=== PATIENT | male | born 1940 | race Caucasian/White ===

== ENCOUNTER 2016-11-01 05:27 | Emergency (ER) | payer OTHER, MEDICARE ==
[~2016-11-01] VITALS: Ht 177.8 cm; Wt 75.9 kg
[~2016-11-01 05:27] MED LIST: ASPEC325 PO; IBUP-1050 PO; MULT-506 PO
[2016-11-01 05:30] VITALS: TEMP 36.3; Ht 177.8 cm; Wt 75.9 kg
[2016-11-01] MEDS ORDERED: SODIUM CHLORIDE 0.9% 500ML 500 ML IV STA (05:45)
[2016-11-01 06:08] LABS: BASO % 0.6 %; BASO ABS # 0.03 K/uL (0-0.2); COMPLETE YES; HEMATOCRIT 42.8 % (42-52); IG% 0.2 %; LYMPH % 30.6 %; LYMPH ABS # 1.57 K/uL (1.2-3.4); MEAN CELL VOLUME 88.2 fL (80-100); MEAN CORPUSCULAR HEMOGLOBIN 31.1 pg (25-34); MEAN CORPUSCULAR HGB CONC 35.3 g/dl (32-36); MEAN PLATELET VOLUME 8.6 fL (7.4-10.4); MONO % 10.3 %; NEUT % 52.3 %; PLATELET COUNT 199 K/uL (130-400); RED BLOOD COUNT 4.85 M/uL (4.7-6.1); WHITE BLOOD COUNT 5.13 K/uL (4.8-10.8)
[2016-11-01 06:26] LABS: BUN/CREATININE RATIO 15.7 (10-20); CALCIUM 8.7 mg/dl (8.5-10.1); CREATININE 0.95 mg/dl (0.60-1.40)
[2016-11-01] MEDS ORDERED: SOAP SUDS ENEMA PR ONE (06:30)
--- NOTE | 2016-11-01 06:39 | EMERGENCY ROOM VISIT NOTE ---
History First contact with patient: 05:34 Chief Complaint: CONSTIPATION Stated Complaint: BLOCKED BOWLS Nursing Triage Summary: Patient reports constipation x6 days. Patient has tried enemas, stool softners, and seen by PCP with no results. Patient states "It feels like I haven't eaten in weeks." History of Present Illness The patient is a 76 year old male who presents to the Emergency Department by private vehicle for evaluation of his constipation. The patient reports that he has not had a bowel movement in the past 6 days. He does report that since May he has had issues with her bowel movements and has been using MiraLAX as needed. He has used multiple [id number] medications. He was seen at his primary care provider's office yesterday and instructed on using a fleets enema. He reports that he use this without success. He denies any pain, but reports occasional fullness in his belly. He reports a history of appendectomy several years ago. He denies any other abdominal surgeries. He is treated for cholesterol issues as well as GERD. He denies any other acute medical conditions. He denies any bleeding from his rectum or blood in stools otherwise. The patient rates his current discomfort as 2/10. Patient denies any chest pain, palpitations, shortness of breath, nausea, vomiting, hematemesis , hematochezia, melena, hematuria, or dysuria. Review of Systems A complete 10-point Review of Systems was discussed with the patient, with pertinent positives and negatives listed in the History of Present Illness. All remaining Review of Systems questions can be considered negative unless otherwise specified. Social History Smoking Status: Never Smoker Smokeless Tobacco Use: No Marital Status: Housing Status: lives with family Occupation Status: retired Current/Historical Medications Scheduled Ranitidine Hcl (Acid Meat Team Lead), 1 TAB PO DAILY Allergies Coded Allergies: No Known Allergies (Verified , 11/01/16) Physical Exam Vital Signs Date Time Temp Pulse Resp B/P Pulse Ox O2 Delivery O2 Flow Rate FiO2 11/01/16 07:27 87 16 121/83 100 11/01/16 05:30 36.3 85 18 118/83 98 Room Air Pain Rating (0-10): 2 Physical Exam VITAL SIGNS - Vital signs and nursing notes were reviewed. GENERAL - 76-year-old male appearing her stated age who is in no acute distress. Communicates well with provider and answers questions appropriately. LUNGS - Chest wall symmetric without accessory muscle use, intercostals retractions, or central cyanosis. Normal vesicular breath sounds CTA B/L. No wheezes, rales, or rhonchi appreciated. CARDIAC - RRR with S1/S2. No murmur, rubs, or gallops appreciated. ABDOMEN - Abdominal contour flat and without pulsations or visible masses. BS normoactive all four quadrants. No tenderness to palpation appreciated throughout. No guarding. No Rebound Tenderness. Negative Rovsing's. Negative Montalvo's. No palpable masses, hepatosplenomegaly, or ascites noted. PSYCH - A&Ox3 and cooperates fully with examiner. Pt is very pleasant and interacts well with examiner. Medical Decision & Procedures ER Provider Diagnostic Interpretation: Obstruction series was obtained and reviewed by myself and my attending physician. The patient has moderate amount of stool throughout the colon with focus to the descending colon and rectum. Radiologist's impression unavailable at the time of dictation. Laboratory Results 11/01/16 05:50 Red Blood Count 4.85, Mean Corpuscular Volume 88.2, Mean Corpuscular Hemoglobin 31.1, Mean Corpuscular Hemoglobin Concent 35.3, Mean Platelet Volume 8.6, Neutrophils (%) (Auto) 52.3, Lymphocytes (%) (Auto) 30.6, Monocytes (%) (Auto) 10.3, Eosinophils (%) (Auto) 6.0, Basophils (%) (Auto) 0.6, Neutrophils # (Auto ) 2.68, Lymphocytes # (Auto) 1.57, Monocytes # (Auto) 0.53, Eosinophils # (Auto ) 0.31, Basophils # (Auto) 0.03 11/01/16 05:50 Test 11/01/16 05:50 White Blood Count 5.13 K/uL (4.8-10.8) Red Blood Count 4.85 M/uL (4.7-6.1) Hemoglobin 15.1 g/dL (14.0-18.0) Hematocrit 42.8 % (42-52) Mean Corpuscular Volume 88.2 fL (80-100) Mean Corpuscular Hemoglobin 31.1 pg (25-34) Mean Corpuscular Hemoglobin Concent 35.3 g/dl (32-36) Platelet Count 199 K/uL (130-400) Mean Platelet Volume 8.6 fL (7.4-10.4) Neutrophils (%) (Auto) 52.3 % Lymphocytes (%) (Auto) 30.6 % Monocytes (%) (Auto) 10.3 % Eosinophils (%) (Auto) 6.0 % Basophils (%) (Auto) 0.6 % Neutrophils # (Auto) 2.68 K/uL (1.4-6.5) Lymphocytes # (Auto) 1.57 K/uL (1.2-3.4) Monocytes # (Auto) 0.53 K/uL (0.11-0.59) Eosinophils # (Auto) 0.31 K/uL (0-0.5) Basophils # (Auto) 0.03 K/uL (0-0.2) RDW Standard Deviation 40.6 fL (36.4-46.3) RDW Coefficient of Variation 12.7 % (11.5-14.5) Immature Granulocyte % (Auto) 0.2 % Immature Granulocyte # (Auto) 0.01 K/uL (0.00-0.02) Anion Gap 9.0 mmol/L (3-11) Est Creatinine Clear Calc Drug Dose 70.4 ml/min Estimated GFR () 91.0 Estimated GFR (Non- 78.5 BUN/Creatinine Ratio 15.7 (10-20) Calcium Level 8.7 mg/dl (8.5-10.1) Total Bilirubin 0.8 mg/dl (0.2-1) Aspartate Amino Transf (AST/SGOT) 19 U/L (15-37) Alanine Aminotransferase (ALT/SGPT) 22 U/L (12-78) Alkaline Phosphatase 63 U/L (45-117) Total Protein 7.1 gm/dl (6.4-8.2) Albumin 3.5 gm/dl (3.4-5.0) Globulin 3.6 gm/dl (2.5-4.0) Albumin/Globulin Ratio 1.0 (0.9-2) Medications Administered Medications (Trade) Dose Ordered Sig/Luzmaria Route Start Time Stop Time Status Last Admin Dose Admin Sodium Chloride (Nss 500ml) 500 ml @ 999 mls/hr Q31M STAT IV 11/01/16 05:45 11/01/16 06:15 DC 11/01/16 05:45 999 MLS/HR Miscellaneous (Soap Suds Enema) 1 ea NOW ONCE PA 11/01/16 06:30 11/01/16 06:31 DC 11/01/16 06:30 1 EA ED Course Patient was seen and evaluated by myself. Labs were drawn, saline lock in place. The patient was hydrated with a 500 mL normal saline bolus. Obstruction series was obtained. Laboratory results demonstrate no acute leukocytosis, worrisome anemia, or bandemia. The patient has no significant electrolyte abnormalities. Imaging results as above. Laboratory results and imaging studies were reviewed with the patient who acknowledges understanding. Case was discussed with my attending physician who independently evaluated the patient and agrees with the diagnostic approach and treatment plan. The patient was treated with a soapsuds enema. He had moderate success. He was reevaluated and feels better at this time. He was provided magnesium citrate for home. He'll follow-up with his primary care provider from today's visit. He will return for any changing or worsening symptoms. Patient discharged home afebrile and in good condition. Medical Decision Given the patient's presentation and stated complaints, I did elect to perform the above-mentioned workup. The patient presents with complaints of constipation over the last 6 days. He has no fever leukocytosis. His abdomen is soft and nontender to palpation. There is been no blood in his stools. The patient was found to have a moderate amount of stool throughout the colon. He was treated with a soapsuds enema with moderate success. The patient will be provided magnesium citrate to be used upon returning home to help with the descending colon constipation. The patient was instructed to follow with his primary care provider and continue to use MiraLAX for home. He was educated on worrisome symptoms for return visit to the emergency department. Patient discharged home afebrile and in good condition. In the evaluation and treatment of this patient, the following differential diagnoses were considered: Appendicitis, Diverticulitis, Diverticulosis, Colitis , Ischemic Colitis, Inflammatory Bowel Disease, Irritable Bowel Disease, Testicular Torsion, Kidney Stone, Pyelonephritis, Hydronephrosis, Cholecystitis , Ascending Cholangitis, Choledocholithiasis, GERD. Impression Primary Impression: Constipation Departure Information Dispostion Home / Self-Care Condition GOOD Referrals Cindi Chen M.D. (MEDICAL) (PCP) Patient Instructions A Signature Page, ED Constipation, [facility] Additional Instructions You have been treated in the Emergency Department today for Constipation. Laboratory results and imaging studies do not indicate any emergent issues warranting surgery or admission. You should drink plenty of fluids and stay well hydrated as this can help soften your stool. Increasing your fiber intake can help with frequency and consistency of your stools. Fruits, vegetables, and whole grains are all good sources of dietary fibers. In addition, you might consider adding supplemental fiber to your diet as well (i.e. Benefiber, Fiber Choice, Metamucil). You should schedule an appointment with your Primary Care Provider to discuss the possibility of adding a stool softener or laxative to your medications. Stool Softeners and Laxatives should only be taken after consultation with your PCP as they have the potential to cause electrolyte abnormalities and worsening symptoms. If you are taking narcotic pain medication on a regular basis, this could also be the cause of your constipation as these drugs slow down the bowels. You should consult with the prescribing physician to determine a proper stool softener to take for the duration of the pain medication. Return to the Emergency Department if your current symptoms worsen despite treatment course outlined above, or if you develop any of the following symptoms : worsening abdominal pain, large amount of blood in the stool, black or tarry stools, fevers, chills, or uncontrollable vomiting.
[2016-11-01] MEDS ORDERED: RANI1TAB13 PO (07:08)
[2016-11-01] MEDS ORDERED: MAGNESIUM CITRATE 296 ML/BTL PO ONE (07:15)
[2016-11-01 07:27] VITALS: BP 121/83; PULSE 87; O2SAT 100
--- NOTE | 2016-11-01 08:01 | DIAGNOSTIC IMAGING REPORT ---
PA CHEST WITH ABDOMINAL SERIES CLINICAL HISTORY: Constipation. FINDINGS: A PA chest radiograph is obtained. No prior studies are available for comparison at the time of dictation. The cardiomediastinal silhouette is unremarkable. There is atherosclerotic calcification of the thoracic aorta. Findings suggest emphysema. Chronic appearing interstitial thickening is noted. No airspace consolidation or pleural effusion is identified. No pneumothorax is seen. The skeletal structures are osteopenic. There are healed left-sided rib fractures. Supine and erect abdominal radiographs are obtained. Correlation is made with radiographs of lumbar spine dated 01/08/2009. There is a nonobstructed abdominal bowel gas pattern. Moderate to severe constipation is observed. No intraperitoneal free air is seen. Numerous calcifications are present in the pelvis. There is mild to moderate lumbosacral spondylosis and scoliosis. The bony pelvis appears intact. IMPRESSION: 1. Findings suggest obstructive physiology. There is no active disease in the chest. 2. Nonobstructed abdominal bowel gas pattern noting moderate to severe constipation. Electronically signed by: Kingsley Wallace M.D. 11/01/2016 8:00 AM Dictated Date/Time: 11/01/2016 7:58 AM
== END 2016-11-01 07:52 | disposition home or self-care (01) ==
LOC: C.EDB 05:28
DX: K59.00 Constipation, unspecified (principal); K21.9 Gastro-esophageal reflux disease without esophagitis; Z79.899 Other long term (current) drug therapy

== ENCOUNTER 2017-09-07 14:18 | Emergency (ER) | payer OTHER, MEDICARE ==
[~2017-09-07] VITALS: Ht 177.8 cm; Wt 75.4 kg
[~2017-09-07 14:18] MED LIST changes: -ASPEC325 PO; -IBUP-1050 PO; -MULT-506 PO; +RANI1TAB13 PO
[2017-09-07 14:31] VITALS: TEMP 36.5; Ht 177.8 cm; Wt 75.4 kg
[2017-09-07] MEDS ORDERED: SODIUM CHLORIDE 0.9% 500ML 500 ML IV STA (14:51)
[2017-09-07] MEDS ORDERED: PRLSR20 PO (15:02)
[2017-09-07 15:18] LABS: HEMATOCRIT 42.5 % (42-52); MEAN CELL VOLUME 89.5 fL (80-100); MEAN CORPUSCULAR HEMOGLOBIN 31.4 pg (25-34); MEAN CORPUSCULAR HGB CONC 35.1 g/dl (32-36); MEAN PLATELET VOLUME 8.4 fL (7.4-10.4); PLATELET COUNT 191 K/uL (130-400); RED BLOOD COUNT 4.75 M/uL (4.7-6.1); WHITE BLOOD COUNT 12.32 K/uL (4.8-10.8)
[2017-09-07 15:35] LABS: CALCIUM 9.1 mg/dl (8.5-10.1); CREATININE 0.98 mg/dl (0.60-1.40); POTASSIUM 3.4 mmol/L (3.5-5.1)
[2017-09-07 15:40] LABS: BASO % 0.2 %; BASO ABS # 0.02 K/uL (0-0.2); COMPLETE YES; EOS % 0.4 %; IG% 0.1 %; LYMPH % 6.7 %; LYMPH ABS # 0.83 K/uL (1.2-3.4); MONO % 7.1 %; NEUT % 85.5 %; SPHEROCYTE 1+
[2017-09-07] MEDS ORDERED: OPTIRAY 320 IV PRN (16:00)
--- NOTE | 2017-09-07 16:22 | DIAGNOSTIC IMAGING REPORT ---
ABDOMEN AND PELVIS CT WITH IV CONTRAST CT DOSE: 330.51 mGy.cm HISTORY: Acute generalized abdominal pain with constipation. diffuse abd pain TECHNIQUE: Multiaxial CT images of the abdomen and pelvis were performed following the use of intravenous contrast. 114 mL Optiray 320 was administered. A dose lowering technique was utilized adhering to the principles of ALARA. COMPARISON STUDY: None. FINDINGS: Lung bases are generally clear. No pneumoperitoneum. Imaged inferior cardiac chambers are unremarkable. Coronary arterial calcifications are present. There are several circumscribed homogeneous low attenuating lesions of the liver suggesting cysts, largest of which measures 4.7 x 3.7 cm. No intrahepatic biliary ductal dilation identified. The spleen, pancreas and adrenal glands are unremarkable. There are multiple gallstones within the gallbladder lumen without CT evidence of acute cholecystitis. Renal sinus cysts are present bilaterally. Multiple low attenuating subcentimeter lesions of the bilateral kidneys suggests renal cyst. There is a renal parenchymal scarring and thinning are present bilaterally. There is no renal calculi or hydronephrosis. Ureters are unremarkable. Urinary bladder is partially collapsed. Prostate is mildly enlarged containing coarse central calcifications. Small fat filled bilateral inguinal hernias. There is mild atherosclerotic plaquing of the abdominal aorta without aneurysm or dissection. There is no bulky adenopathy identified. Small duodenal diverticulum. There is no bowel obstruction. Stool ball in the rectal vault measures 6.1 cm transversely. Mild rectal wall thickening is noted with surrounding inflammatory stranding. Moderate overall stool volume throughout the colon. The appendix is not seen and may be surgically absent. Soft tissues are unremarkable. Facet arthrosis of the lower lumbar spine. Multilevel discogenic degenerative changes. IMPRESSION: 1. Findings suggest constipation. Moderate sized stool ball in the rectal vault with associated rectal wall thickening and surrounding inflammatory stranding suggests stercoral proctitis. No bowel obstruction. 2. Cholelithiasis without CT evidence of acute cholecystitis. 3. Prostamegaly. 4. Additional findings as above. Electronically signed by: Mamadou Garcia M.D. 09/07/2017 4:20 PM Dictated Date/Time: 09/07/2017 4:14 PM
[2017-09-07 16:40] LABS: URINE APPEARANCE CLEAR (CLEAR); URINE BILIRUBIN NEG (NEG); URINE COLOR YELLOW; URINE NITRITE NEG (NEG); URINE SPECIFIC GRAVITY 1.045 (1.000-1.030); UROBILINOGEN NEG (NEG); ZZUR CULT IF INDIC CLEAN CATCH NO
[2017-09-07 16:42] LABS: MANUAL MICROSCOPIC REQUIRED? NO; REVIEW REQ? NO
[2017-09-07] MEDS ORDERED: MAGNESIUM CITRATE 296 ML/BTL PO STA (16:44)
[2017-09-07] MEDS ORDERED: SOD PHOSPHATE/SOD BIPHOSPHATE ENEMA 132 ML BTL PR STA (16:44)
[2017-09-07 17:55] VITALS: BP 130/84; PULSE 110; O2SAT 96
--- NOTE | 2017-09-07 18:14 | EMERGENCY ROOM VISIT NOTE ---
History Report prepared by Louise: Cole Holcomb Under the Supervision of: Dr. Cooper Díaz D.O. First contact with patient: 14:34 Chief Complaint: GI ASSESSMENT Stated Complaint: BLOCKED BOWELS History of Present Illness The patient is a 77 year old male who presents to the Emergency Room with complaints of persistent constipation that started 4 days ago. He says that he has not had a bowel movement during these 4 days. The patient states that he has not been passing gas either. The patient notes that he has been having lower abdominal pain that radiates around to his back, which has started today. He denies any trouble urinating or pain or burning with urination. He also denies any vomiting, fevers, chest pain, or shortness of breath. The patient notes a history of an appendectomy. He says that he has been taking a cup-size of Miralax with no relief, and today he says that he took a stool softener. He notes this does feel like the previous times is been constipated. Source of History: patient, spouse/significant other Onset: 4 days ago Position: other (global - constipation) Symptom Intensity: has not had a bowel movement Timing: other (persistent) Associated Symptoms: + abdominal pain (low), + back pain, No fevers, No chest pain, No SOB, No vomiting, No urinary symptoms Note: Associated symptoms: Not passing gas. Review of Systems See HPI for pertinent positives & negatives. A total of 10 systems reviewed and were otherwise negative. Past Medical & Surgical Medical Problems: (1) Constipation Surgical Problems: (1) History of appendectomy Family History Family history omitted secondary to patient's advanced age. Social History Smoking Status: Former Smoker Marital Status: Housing Status: lives with family Occupation Status: retired Current/Historical Medications Scheduled Omeprazole (Prilosec), 20 MG PO DAILY Allergies Coded Allergies: No Known Allergies (Verified , 09/07/17) Physical Exam Vital Signs Date Time Temp Pulse Resp B/P (MAP) Pulse Ox O2 Delivery O2 Flow Rate FiO2 09/07/17 17:55 110 20 130/84 96 09/07/17 16:20 113 20 119/78 96 Room Air 09/07/17 14:31 36.5 109 17 120/81 97 Room Air Physical Exam GENERAL: Sitting up in bed, alert, well appearing, well nourished, no distress, non-toxic EYE EXAM: normal conjunctiva. OROPHARYNX: no exudate, no erythema, lips, buccal mucosa, and tongue normal and mucous membranes are moist NECK: supple, no nuchal rigidity, no adenopathy, non-tender LUNGS: Clear to auscultation. Normal chest wall mechanics HEART: no murmurs, S1 normal and S2 normal ABDOMEN: Faint tenderness in lower abdomen. Abdomen soft, normo-active bowel sounds, no masses, no rebound or guarding. BACK: Back is symmetrical on inspection and there is no deformity, no midline tenderness, no CVA tenderness. SKIN: no rashes and no bruising UPPER EXTREMITIES: upper extremities are grossly normal. LOWER EXTREMITIES: No pitting edema. NEURO EXAM: Normal sensorium, cranial nerves II-XII grossly intact, normal speech, no gross weakness of arms, no gross weakness of legs. Medical Decision & Procedures ER Provider Diagnostic Interpretation: CT results as stated below per my review and the radiologist's interpretation: ABDOMEN AND PELVIS CT WITH IV CONTRAST CT DOSE: 330.51 mGy.cm HISTORY: Acute generalized abdominal pain with constipation. diffuse abd pain TECHNIQUE: Multiaxial CT images of the abdomen and pelvis were performed following the use of intravenous contrast. 114 mL Optiray 320 was administered. A dose lowering technique was utilized adhering to the principles of ALARA. COMPARISON STUDY: None. FINDINGS: Lung bases are generally clear. No pneumoperitoneum. Imaged inferior cardiac chambers are unremarkable. Coronary arterial calcifications are present. There are several circumscribed homogeneous low attenuating lesions of the liver suggesting cysts, largest of which measures 4.7 x 3.7 cm. No intrahepatic biliary ductal dilation identified. The spleen, pancreas and adrenal glands are unremarkable. There are multiple gallstones within the gallbladder lumen without CT evidence of acute cholecystitis. Renal sinus cysts are present bilaterally. Multiple low attenuating subcentimeter lesions of the bilateral kidneys suggests renal cyst. There is a renal parenchymal scarring and thinning are present bilaterally. There is no renal calculi or hydronephrosis. Ureters are unremarkable. Urinary bladder is partially collapsed. Prostate is mildly enlarged containing coarse central calcifications. Small fat filled bilateral inguinal hernias. There is mild atherosclerotic plaquing of the abdominal aorta without aneurysm or dissection. There is no bulky adenopathy identified. Small duodenal diverticulum. There is no bowel obstruction. Stool ball in the rectal vault measures 6.1 cm transversely. Mild rectal wall thickening is noted with surrounding inflammatory stranding. Moderate overall stool volume throughout the colon. The appendix is not seen and may be surgically absent. Soft tissues are unremarkable. Facet arthrosis of the lower lumbar spine. Multilevel discogenic degenerative changes. IMPRESSION: 1. Findings suggest constipation. Moderate sized stool ball in the rectal vault with associated rectal wall thickening and surrounding inflammatory stranding suggests stercoral proctitis. No bowel obstruction. 2. Cholelithiasis without CT evidence of acute cholecystitis. 3. Prostamegaly. 4. Additional findings as above. Electronically signed by: Mamadou Garcia M.D. 09/07/2017 4:20 PM Dictated Date/Time: 09/07/2017 4:14 PM Laboratory Results 09/07/17 15:05 Red Blood Count 4.75, Mean Corpuscular Volume 89.5, Mean Corpuscular Hemoglobin 31.4, Mean Corpuscular Hemoglobin Concent 35.1, Mean Platelet Volume 8.4, Neutrophils (%) (Auto) 85.5, Lymphocytes (%) (Auto) 6.7, Monocytes (%) (Auto) 7.1, Eosinophils (%) (Auto) 0.4, Basophils (%) (Auto) 0.2, Neutrophils # (Auto) 10.53, Lymphocytes # (Auto) 0.83, Monocytes # (Auto) 0.88, Eosinophils # (Auto) 0.05, Basophils # (Auto) 0.02 09/07/17 15:05 Test 09/07/17 15:05 09/07/17 16:15 White Blood Count 12.32 K/uL (4.8-10.8) Red Blood Count 4.75 M/uL (4.7-6.1) Hemoglobin 14.9 g/dL (14.0-18.0) Hematocrit 42.5 % (42-52) Mean Corpuscular Volume 89.5 fL (80-100) Mean Corpuscular Hemoglobin 31.4 pg (25-34) Mean Corpuscular Hemoglobin Concent 35.1 g/dl (32-36) Platelet Count 191 K/uL (130-400) Mean Platelet Volume 8.4 fL (7.4-10.4) Neutrophils (%) (Auto) 85.5 % Lymphocytes (%) (Auto) 6.7 % Monocytes (%) (Auto) 7.1 % Eosinophils (%) (Auto) 0.4 % Basophils (%) (Auto) 0.2 % Neutrophils # (Auto) 10.53 K/uL (1.4-6.5) Lymphocytes # (Auto) 0.83 K/uL (1.2-3.4) Monocytes # (Auto) 0.88 K/uL (0.11-0.59) Eosinophils # (Auto) 0.05 K/uL (0-0.5) Basophils # (Auto) 0.02 K/uL (0-0.2) RDW Standard Deviation 41.3 fL (36.4-46.3) RDW Coefficient of Variation 12.7 % (11.5-14.5) Immature Granulocyte % (Auto) 0.1 % Immature Granulocyte # (Auto) 0.01 K/uL (0.00-0.02) Spherocytes 1+ Anion Gap 11.0 mmol/L (3-11) Est Creatinine Clear Calc Drug Dose 67.2 ml/min Estimated GFR () 87.1 Estimated GFR (Non- 75.1 BUN/Creatinine Ratio 23.0 (10-20) Calcium Level 9.1 mg/dl (8.5-10.1) Total Bilirubin 0.8 mg/dl (0.2-1) Direct Bilirubin 0.2 mg/dl (0-0.2) Aspartate Amino Transf (AST/SGOT) 18 U/L (15-37) Alanine Aminotransferase (ALT/SGPT) 22 U/L (12-78) Alkaline Phosphatase 74 U/L (45-117) Total Protein 7.4 gm/dl (6.4-8.2) Albumin 3.8 gm/dl (3.4-5.0) Lipase 111 U/L (73-393) Urine Color YELLOW Urine Appearance CLEAR (CLEAR) Urine pH 5.0 (4.5-7.5) Urine Specific [place] 1.045 (1.000-1.030) Urine Protein NEG (NEG) Urine Glucose (UA) NEG (NEG) Urine Ketones 1+ (NEG) Urine Occult Blood NEG (NEG) Urine Nitrite NEG (NEG) Urine Bilirubin NEG (NEG) Urine Urobilinogen NEG (NEG) Urine Leukocyte Esterase NEG (NEG) Urine WBC (Auto) 1-5 /hpf (0-5) Urine RBC (Auto) 0-4 /hpf (0-4) Urine Hyaline Casts (Auto) 1-5 /lpf (0-5) Urine Epithelial Cells (Auto) 5-10 /lpf (0-5) Urine Bacteria (Auto) NEG (NEG) Laboratory results per my review. Medications Administered Medications (Trade) Dose Ordered Sig/Luzmaria Route Start Time Stop Time Status Last Admin Dose Admin Sodium Chloride 500 ml @ 999 mls/hr Q31M STAT IV 09/07/17 14:51 09/07/17 15:21 DC 09/07/17 15:10 999 MLS/HR Sodium Biphosphate/ Sodium Phosphate (Fleet Enema) 132 ml NOW STAT NE 09/07/17 16:44 09/07/17 16:45 DC 09/07/17 17:12 132 ML Magnesium Citrate (Citrate Of Magnesia Soln) 296 ml ONE STAT PO 09/07/17 16:44 09/07/17 16:45 DC 09/07/17 17:12 296 ML ED Course ED COURSE: Vital signs were reviewed and showed tachycardic vitals. The patients medical record was reviewed The above diagnostic studies were performed and reviewed. ED treatments and interventions as stated above. 1436: The patient was evaluated in room C7. A complete history and physical examination was performed. 1451: Ordered NSS 500 ml @ 999 mls/hr IV. 1644: Ordered Citrate of Magnesia Soln 296 ml PO, Fleet Enema 132 ml NE. 1650: I reevaluated and updated the patient. 1716: Upon reevaluation, the patient is resting comfortably. I discussed my findings with the patient and he understands and agrees with the treatment plan. Based on the patients age, coexisting illnesses, exam and lab findings the decision to treat as an outpatient was made. The patient remained stable while under my care. The patient appeared well at the time of discharge. 1751: I reevaluated the patient and he says that he took a "horse dump". Medical Decision Differential diagnoses includes but is not limited to gastritis, peptic ulcer disease, GERD, gallbladder disease, pancreatitis, small bowel obstruction, acute coronary syndrome, pericarditis, ischemic bowel, irritable bowel disease, irritable bowel syndrome, appendicitis, diverticulitis, malignancy, hernia, urinary tract infection, torsion, perforation, trauma, infectious. Patient is a 77-year-old male who presents to ER for lower abdominal pain which started today. He notes he has not had a bowel movement since this past Friday. No nausea vomiting. Does have a previous history constipation. Previous appendectomy. No other complaints. CBC shows a faint leukocytosis of 12,000 which I favor secondary to pain. Mild hypokalemia 3.4. Creatinines unremarkable. LFTs and bilirubin along with lipase is normal. UA was negative. Completely benign abdominal exam. CT shows large amount of pus patient. He was given an enema with a large bowel movement and had complete resolution of his symptoms. He was discharged follow-up with PCP. Discussed with Pt concerning signs and symptoms to watch out for. Pt was instructed to follow up with their PCP and discussed with the patient their option to return to the ED at anytime for persistent or worsening symptoms. The appropriate anticipatory guidance and out-patient management, including indications for return to the emergency department, were explained at length to the patient and understood. Medication Reconcilliation Current Medication List: was personally reviewed by me Blood Pressure Screening Patient's blood pressure: Normal blood pressure Impression Primary Impression: Constipation Scribe Attestation The scribe's documentation has been prepared under my direction and personally reviewed by me in its entirety. I confirm that the note above accurately reflects all work, treatment, procedures, and medical decision making performed by me. Departure Information Dispostion Home / Self-Care Referrals Cindi Chen M.D. (MEDICAL) (PCP) Patient Instructions ED Constipation, My [facility] Additional Instructions lease follow up with your primary care doctor with in the next 24 hours. Any worsening of your symptoms, please return to the ED immediately. This includes any fevers greater than 100.4, worsening pain, chest pain, shortness breath, persistent nausea, vomiting, unable to eat or drink, blood in your stool, dark tarry stools, or any other concerning signs or symptoms from your standpoint. When you get home please purchase MiraLAX 250 g bottle. Mix with 64 ounces of Gatorade. Please drink 8 ounces every 15-20 minutes until he have a bowel movement. This can be repeated additional 2 times. Once you start having bowel movements you will continue to have diarrhea for the next several hours. Problem Qualifiers Primary Impression: Constipation Constipation type: unspecified constipation type Qualified Codes: K59.00 - Constipation, unspecified
== END 2017-09-07 17:56 | disposition home or self-care (01) ==
LOC: C.EDB 14:19 → C.EDC 17:56
DX: K59.00 Constipation, unspecified (principal); Z87.891 Personal history of nicotine dependence

== ENCOUNTER 2022-10-12 10:36 | Inpatient (IN) ==
[2022-10-12 11:13] LABS: Basophils # (auto) 0.05 K/uL (0-0.2); Basophils % (auto) 0.9 %; Eosinophils # (auto) 0.15 K/uL (0-0.50); Eosinophils % (auto) 2.7 %; Hematocrit (blood only) 44.5 % (40.1-51.0); Hemoglobin 15.4 g/dl (14.0-18.0); Immature Granulocytes # (auto) 0.01 K/uL (0.00-0.02); Immature Granulocytes % (auto) 0.2 %; Lymphocytes # (auto) 1.38 K/uL (1.2-3.4); Lymphocytes % (auto) 25.1 %; Mean Corpuscular Hemoglobin 31.7 pg (25.0-34.0); Mean Corpuscular Hgb Conc 34.6 g/dL (32.0-36.0); Mean Corpuscular Volume 91.6 fL (80.0-100.0); Monocytes # (auto) 0.37 K/uL (0.24-0.82); Monocytes % (auto) 6.7 %; Neutrophils # (auto) 3.54 K/uL (1.4-6.5); Neutrophils % (auto) 64.4 %; Platelet Count 220 K/uL (130-400); RDW Coefficient of Variation 12.8 % (11.5-14.5); RDW Standard Deviation 42.6 fL (36.4-46.3); Red Blood Count 4.86 M/uL (4.63-6.08)
--- NOTE | 2022-10-12 11:16 | CT Scan Report ---
CT SCAN OF THE BRAIN WITHOUT IV CONTRAST CLINICAL HISTORY: Change in mental status. COMPARISON STUDY: CT scans of the brain dated 09/20/2022 and 04/22/2022. TECHNIQUE: Unenhanced axial CT scan of the brain is performed from the vertex to the skull base. A do se lowering technique was utilized adhering to the principles of ALARA. CT DOSE: 537.48 mGy.cm FINDINGS: Brain parenchyma: Again seen are mixed attenuation subdural hemorrhages along both convexities. This measures up to 12 mm on the left and up to 10 mm on the right. Hyperdense foci are seen within both s ubdural hemorrhages anteriorly, and these may be acute on chronic. These cause mild mass effect with effacement of the subjacent cortical sulci. No midline shift is seen. There is age-related involution al change noting mild subcortical and periventricular microangiopathic disease. There is no parenchym al hematoma or evidence of acute territorial ischemia by CT criteria. Mineralization is noted in the basal ganglia. Dao-white matter differentiation is preserved. Ventricles, sulci, cisterns: Prominent secondary to involutional change. Intracranial vasculature: There is atherosclerotic calcification of the cavernous carotid arteries. Calvarium: Unremarkable. Sinuses and mastoids: The paranasal sinuses are clear. There is evidence of previous left mastoid marce dilip, with trace fluid in the resection cavity. The right mastoid air cells are well pneumatized. Cer umen is noted in the external auditory canals. Orbits: The bony orbits are grossly intact. There are bilateral ocular lens implants. IMPRESSION: 1. Bilateral subdural hemorrhages as above, similar in size to 09/20/2022 examination. These contain internal hyperdense foci and foci of acute on chronic hemorrhage are not excluded. 2. These cause mild mass effect with effacement of the subjacent cortical sulci. No midline shift is seen. 3. There is no parenchymal hematoma or evidence of acute territorial ischemia by CT criteria. ACT 112: Negative or not required by law. Electronically signed by: Kingsley Wallace M.D. 10/12/2022 11:14 AM
[2022-10-12 11:26] LABS: Prothrombin Time 10.9 Seconds (9.0-12.0)
--- NOTE | 2022-10-12 11:27 | XRay Report ---
SINGLE VIEW CHEST CLINICAL HISTORY: Generalized weakness. FINDINGS: An AP, portable, upright chest radiograph is compared to study dated 04/22/2022. The heart i s enlarged noting atherosclerotic calcification of the thoracic aorta. The pulmonary vasculature is n oncongested. Chronic interstitial thickening similar to previous. There is bibasilar scarring/atelect asis. The lungs and pleural spaces are otherwise clear. No pneumothorax is seen. The skeletal structu res are osteopenic. There are healed left-sided rib fractures. IMPRESSION: Cardiomegaly with no acute cardiopulmonary abnormality. ACT 112: Negative or not required by law. Electronically signed by: Kingsley Wallace M.D. 10/12/2022 11:26 AM
[2022-10-12 11:38] LABS: Albumin Globulin Ratio 1.2 (0.9-2); Albumin Level 4.2 gm/dl (3.4-5.0); BUN Creatinine Ratio 27.4 (10-20); Bilirubin,Total 0.7 mg/dl (0.2-1.0); Calcium 9.6 mg/dl (8.5-10.1); Creatinine Clr Calc Pharmacy 72.4 ml/min; Est GFR (African American) 95.8 ml/min; Est GFR (Non-African American) 82.7 ml/min; Globulin 3.4 gm/dl (2.5-4.0); Magnesium 2.4 mg/dl (1.7-2.4); Total Protein 7.6 gm/dl (6.0-8.3)
[2022-10-12 11:45] LABS: Troponin I High Sensitivity 4.4 pg/ml (0-20)
[2022-10-12 11:53] LABS: Influenza A virus by PCR Negative (Neg); Influenza B virus by PCR Negative (Neg); RSV by PCR Negative (Neg); SARS CoV2 RNA(COVID-19) Ceph NEGATIVE (Negative)
[2022-10-12 12:09] LABS: Appearance Urine Clear (Clear); Bacteria Urine Automated Negative (Negative); Bilirubin Urine Negative (Negative); Blood Urine Negative (Negative); Cast Urine Automated 0 /lpf (0-5); Color Urine Yellow; Glucose Urine UA Negative (Negative); Ketones Urine Negative (Negative); Leukocyte Esterase Urine Trace (Negative); Nitrite Urine Negative (Negative); Protein Urine Negative (Negative); RBC Urine Automated 0-4 /hpf (0-4); Specific Gravity Urine 1.016 (1.000-1.030); Urobilinogen Urine Negative (Negative); pH Urine 7.5 (4.5-7.5)
[2022-10-12] MEDS ORDERED: OLANZapine 10 MG/2.1 ML SDV IM PRN (16:17)
--- NOTE | 2022-10-12 17:25 | History & Physical Report ---
Date of Service October 12, 2022 Assessment & Plan (1) Dementia with behavioral disturbance: Plan: Admit to [facility] Patient presenting from home after an episode of unresponsiveness this morning. Patient has since returned to his baseline mental status. Patient with history of dementia with increasing episodes of agitation and wandering over the past few months. Patient currently calm and cooperative. Per family, patient has been trialed on Risperdal however this resulted in increased agitation. Patient's has been giving him Tylenol PM at home. KRISTINA Olvera, psych consult for further recommendations Case management consult, may need placement at discharge (2) History of subdural hematoma: Plan: History of traumatic SDH 03/[address] today is unchanged from prior and shows signs of chronic SDH DVT prophylaxis SCDs due to SDH Admission and Anticipated Discharge Date Admission Date: October 12, 2022 History of Present Illness Chief Complaint: Unresponsive episode Primary Care Provider: Betina Ballard MD 82-year-old male with PMH dementia, BPH, dyslipidemia, traumatic subdural hematoma 03/2022, and other problems listed below who presents the ED for evaluation after an unresponsive episode. Due to patient's underlying advanced dementia, history is unobtainable from him. Patient's and daughter at the bedside who provide history. Patient's states the patient has had dementia for the past 2 to 3 years however has been worsening over the past few months. Patient has been becoming more aggressive at home and recently obtained knives and was chasing his around the home. She was not injured. Patient was brought to the ED after that event and was discharged home. Patient also has been wandering and has been found out by the road by neighbors. Patient was trialed on Risperdal however daughter states this made him more aggressive. Over the past 1 month, patient's has been giving him 2 Tylenol PM at night and 1 Tylenol PM in the morning. 2 days ago, patient had a period of 24 hours of wakefulness. This morning, patient's states that she went to wake the patient up and found him in his recliner chair. She reports that he would open his eyes however was just staring straight forward and would not respond to her. EMS was called and patient was brought to the ED for further evaluation. Patient has since returned to his baseline mental status. No recent falls reported by the family. In the ED, patient is hemodynamically stable, labs are unremarkable. 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 Allergies Allergy/AdvReac Type Severity Reaction Status Date / Time No Known Allergies Allergy Verified 04/22/22 22:20 Home Medications Medication Instructions Recorded Confirmed Type diphenhydramine 25 1 tab PO DAILY 10/12/22 10/12/22 History mg-acetaminophen 500 mg tablet (Tylenol PM Extra Strength) diphenhydramine 25 2 tab PO HS 10/12/22 10/12/22 History mg-acetaminophen 500 mg tablet (Tylenol PM Extra Strength) Past Med/Surg History Medical History BPH (benign prostatic hyperplasia) Dementia SDH (subdural hematoma) Surgical History H/O inguinal hernia repair Family History Other Family history unobtainable Social History Smoking Status: Unknown if ever smoked Tobacco Type: Cigarettes Smoking End Date: Pt confused and disoriented. Poor historian.; Hx Alcohol Use: No (Pt confused and disoriented. Poor historian.) Preferred Language: Faroese Communication Ability: Effective General Assistant Required: No Beliefs That Will Affect Care: None marital status: Current Living Situation: Significant Other Current Living Situation Comment: Pt confused and disoriented. Poor historian. Feels Safe at Home: Declines to Answer Assistive Devices: Glasses Review of Systems Review of Systems: Unobtainable due to cognitive status Physical Exam Constitutional: WD/WN, vitals as above Eyes: PERRL, conjunctivae normal, anicteric sclerae ENMT: external ear and nose normal, oropharynx normal Respiratory: normal respiratory effort, lungs clear to auscultation Cardiovascular: Rate/Rhythm: regular rate and regular rhythm Vessels: normal peripheral pulses Extremities: no edema Gastrointestinal (Abdomen): normal bowel sounds, soft, nontender, no hepatosplenomegaly Musculoskeletal: no cyanosis or clubbing, extremities motor strength 5/5 Skin: no rashes, warm and dry Neurologic: PERRL, EOMI, accommodation nl, no face palsy, no dysarthria no focal motor deficits Follow simple commands Psychiatric: Orientation: alert, oriented to person and cooperative; + not oriented to place and + not oriented to time Results & Data Results & Data ([facility]) Vital Signs (Past 12 Hours) Vital Signs Temp Pulse Pulse Resp BP BP Pulse Ox 10/12/22 16:18 10/12/22 16:14 36.4 C L 104 H 18 157/98 H 96 10/12/22 15:00 97 H 20 147/92 H 96 10/12/22 13:00 90 20 130/93 98 10/12/22 11:42 96 H 20 152/99 H 98 10/12/22 11:13 97 10/12/22 11:13 88 24 167/89 H 98 10/12/22 10:42 83 18 141/83 H 98 O2 Del Method 10/12/22 16:18 Room Air 10/12/22 16:14 Room Air 10/12/22 15:00 Room Air 10/12/22 13:00 Room Air 10/12/22 11:42 Room Air 10/12/22 11:13 Room Air 10/12/22 11:13 Room Air 10/12/22 10:42 Room Air Laboratory Results Short CBC 10/12/22 Range/Units 10:50 WBC 5.50 (4.8-10.8) K/ul Hgb 15.4 (14.0-18.0) g/dl Hct 44.5 (40.1-51.0) % Plt Count 220 (130-400) K/uL BMP 10/12/22 10:50 Sodium 141 Potassium 4.0 Chloride 106 Carbon Dioxide 28 BUN 23 Creatinine 0.84 Glucose 95 Calcium 9.6 Liver Function 10/12/22 Range/Units 10:50 Total Bilirubin 0.7 (0.2-1.0) mg/dl AST 15 (13-39) U/L ALT 18 (7-52) U/L Alkaline Phosphatase 53 (34-104) U/L Albumin 4.2 (3.4-5.0) gm/dl Urine 10/12/22 Range/Units 11:55 Urine Color Yellow Urine Appearance Clear (Clear) Urine pH 7.5 (4.5-7.5) Ur Specific [place] 1.016 (1.000-1.030) Urine Protein Negative (Negative) Urine Glucose (UA) Negative (Negative) Diagnostic Findings Head CT 10/12/22 10:35 CT SCAN OF THE BRAIN WITHOUT IV CONTRAST CLINICAL HISTORY: Change in mental status. COMPARISON STUDY: CT scans of the brain dated 09/20/2022 and 04/22/2022. TECHNIQUE: Unenhanced axial CT scan of the brain is performed from the vertex to the skull base. A dose lowering technique was utilized adhering to the principles of ALARA. CT DOSE: 537.48 mGy.cm FINDINGS: Brain parenchyma: Again seen are mixed attenuation subdural hemorrhages along both convexities. This measures up to 12 mm on the left and up to 10 mm on the right. Hyperdense foci are seen within both subdural hemorrhages anteriorly, and these may be acute on chronic. These cause mild mass effect with effacement of the subjacent cortical sulci. No midline shift is seen. There is age-related involutional change noting mild subcortical and periventricular microangiopathic disease. There is no parenchymal hematoma or evidence of acute territorial ischemia by CT criteria. Mineralization is noted in the basal ganglia. Dao- white matter differentiation is preserved. Ventricles, sulci, cisterns: Prominent secondary to involutional change. Intracranial vasculature: There is atherosclerotic calcification of the cavernous carotid arteries. Calvarium: Unremarkable. Sinuses and mastoids: The paranasal sinuses are clear. There is evidence of previous left mastoid surgery, with trace fluid in the resection cavity. The right mastoid air cells are well pneumatized. Cerumen is noted in the external auditory canals. Orbits: The bony orbits are grossly intact. There are bilateral ocular lens implants. IMPRESSION: 1. Bilateral subdural hemorrhages as above, similar in size to 09/20/2022 examination. These contain internal hyperdense foci and foci of acute on chronic hemorrhage are not excluded. 2. These cause mild mass effect with effacement of the subjacent cortical sulci. No midline shift is seen. 3. There is no parenchymal hematoma or evidence of acute territorial ischemia by CT criteria. ACT 112: Negative or not required by law. Electronically signed by: Kingsley Wallace M.D. 10/12/2022 11:14 AM Chest X-Ray 10/12/22 10:36 SINGLE VIEW CHEST CLINICAL HISTORY: Generalized weakness. FINDINGS: An AP, portable, upright chest radiograph is compared to study dated 04/22/2022. The heart is enlarged noting atherosclerotic calcification of the thoracic aorta. The pulmonary vasculature is noncongested. Chronic interstitial thickening similar to previous. There is bibasilar scarring/atelectasis. The lungs and pleural spaces are otherwise clear. No pneumothorax is seen. The skeletal structures are osteopenic. There are healed left-sided rib fractures. IMPRESSION: Cardiomegaly with no acute cardiopulmonary abnormality. ACT 112: Negative or not required by law. Electronically signed by: Kingsley Wallace M.D. 10/12/2022 11:26 AM Code Status & VTE Plan Code Status Patient is a DNR as per my discussion with patient's . VTE Prophylaxis Plan VTE Prophylaxis will be ordered: Yes Supervising Physician Co-Signing Physician Notes delayed entry date of service noted above Attending Addendum: care coordinated with AL Soto please refer to her notes for full details, I agree with her notes patient seen and examined, records reviewed by myself as well on exam, patient seen sitting up in bed, comfortable pleasantly confused denies headache, dizziness, focal weakness/numbness no chest pain, dyspnea, palpitations, dizziness no other symptoms VS noted and reviewed oriented x 1, not in distress, speaks in sentences with no effort nor accessory muscle use normal rate, regular rhythm, no murmurs clear breath sounds bilaterally non distended, soft, nontender no bipedal edema, erythema, warmth no neuro deficits all labs noted and reviewed ASSESSMENT AND PLAN Dementia with behavioral disturbance -- Psych consulted CM consult for possible transitioning to SNF other diagnoses and plan of care as per AL Soto's notes Adonis Gorman MD
[2022-10-12] MEDS: ACETAMINOPHEN 325 MG TAB PO PRN (22:41)
[2022-10-13] MEDS: ACETAMINOPHEN 325 MG TAB PO PRN ×2 (11:32→21:30)
--- NOTE | 2022-10-13 16:09 | Psychiatric Consultation ---
Date of Consultation October 13, 2022 Impression / Recommendations Impression 82 yo male with prior dx of dementia, possibly Massimo Bonnet, s/p subdural hematoma 04/17 with acute AMS (period of decreased responsiveness then confusion) now back to baseline dementia/confusion. Has been receiving anticholinergic form of Tylenol pm regularly which may help with restlessness/pain but worsen cognition/add to confusion. Certainly given hx of subdural would be at some increased risk for seizure. (1) Dementia with behavioral disturbance: (2) History of subdural hematoma: Plan defer EEG/MRI to medical, suspect low yield confirm last b12/folate prn Zyprexa is ordered, does not appear to have required, may want to have 2.5 mg PO as option currently has 1 on 1 as hx of wandering and admit for MS change, patient has not been aggressive or suicidal. avoid anticholinergics Psych History Identifying Data 82 yo male from [place] with no psych hx but 04/17 subdural hematomas, admit medically following a period of decreased responsiveness. Consult is by hospitalist service for AMS. 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 Apparently was responding to internal stimuli and trying to protect self. They have secured the home but and daughter feel they can no longer keep him safe even with support of office of aging. He has been receiving Tylenol pm pretty regularly twice a day. No prior psych hx, med trials as above. 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 reported to staff that he is currently back to baseline dementia after period of confusion resulting in ED visit. Allergies Allergy/AdvReac Type Severity Reaction Status Date / Time No Known Allergies Allergy Verified 04/22/22 22:20 Home Medications Medication Instructions Recorded Confirmed Type diphenhydramine 25 1 tab PO DAILY 10/12/22 10/12/22 History mg-acetaminophen 500 mg tablet (Tylenol PM Extra Strength) diphenhydramine 25 2 tab PO HS 10/12/22 10/12/22 History mg-acetaminophen 500 mg tablet (Tylenol PM Extra Strength) Personal History Beliefs That Will Affect Care: None Patient History Medical History BPH (benign prostatic hyperplasia) Dementia SDH (subdural hematoma) Surgical History H/O inguinal hernia repair Family History Other Family history unobtainable Social History Smoking Status: Unknown if ever smoked Tobacco Type: Cigarettes Smoking End Date: Pt confused and disoriented. Poor historian.; Hx Alcohol Use: No (Pt confused and disoriented. Poor historian.) Preferred Language: Pashto Communication Ability: Effective Plug Machine Operator Required: No Beliefs That Will Affect Care: None marital status: Current Living Situation: Significant Other Current Living Situation Comment: Pt confused and disoriented. Poor historian. Feels Safe at Home: Declines to Answer Assistive Devices: Glasses Physical Exam Psychiatric: Orientation: alert Apperance: appropriately groomed Eye Contact: good eye contact Speech: + abnormal rate/rhythm/volume of speech (nonsensical, rambling) Affect: + constricted affect Mood: no depressed mood (alexithymic) Thought Process: + incoherent thought process Thought Content: not paranoid Hallucinations: no auditory hallucinations and no visual hallucinations did not appear to be repsonding to internal stimuli Cognition: + attention not intact and + language not intact expressive aphasia Vital Signs (Past 24 Hours): Last Vital Signs Temp 36.6 C 10/13/22 15:02 Pulse 96 H 10/13/22 15:02 Resp 18 10/13/22 15:02 BP 133/80 10/13/22 15:02 Pulse Ox 98 10/13/22 15:02 O2 Del Method 10/13/22 15:02 Review of Systems Unobtainable due to cognitive status Results & Data ([facility]) Laboratory Results Labs 10/12/22 10/12/22 10/12/22 10:50 10:50 10:50 WBC 5.50 RBC 4.86 Hgb 15.4 Hct 44.5 MCV 91.6 MCH 31.7 MCHC 34.6 RDW Std Deviation 42.6 RDW Coeff of [place] 12.8 Plt Count 220 MPV 8.0 L Immature Gran % (Auto) 0.2 Neut % (Auto) 64.4 Lymph % (Auto) 25.1 [place] % (Auto) 6.7 Eos % (Auto) 2.7 Baso % (Auto) 0.9 Neut # (Auto) 3.54 Lymph # (Auto) 1.38 [place] # (Auto) 0.37 Eos # (Auto) 0.15 Baso # (Auto) 0.05 Immature Gran # (Auto) 0.01 PT 10.9 INR 1.0 Sodium 141 Potassium 4.0 Chloride 106 Carbon Dioxide 28 Anion Gap 7 BUN 23 Creatinine 0.84 Est Cr Clr Drug Dosing 72.4 Est GFR ( Amer) 95.8 Est GFR (Non-Af Amer) 82.7 BUN/Creatinine Ratio 27.4 H Glucose 95 Calcium 9.6 Magnesium 2.4 Total Bilirubin 0.7 AST 15 ALT 18 Alkaline Phosphatase 53 Troponin I High Sens 4.4 Total Protein 7.6 Albumin 4.2 Globulin 3.4 Albumin/Globulin Ratio 1.2 TSH Urine Color Urine Appearance Urine pH Ur Specific [place] Urine Protein Urine Glucose (UA) Urine Ketones Urine Blood Urine Nitrite Urine Bilirubin Urine Urobilinogen Ur Leukocyte Esterase Urine WBC (Auto) Urine RBC (Auto) U Hyaline Cast (Auto) U Epithel Cells (Auto) Urine Bacteria (Auto) SARS-CoV-2 (PCR) Influenza Type A (PCR) Influenza Type B (PCR) RSV (RT-PCR) 10/12/22 10/12/22 10/12/22 10:50 11:00 11:55 WBC RBC Hgb Hct MCV MCH MCHC RDW Std Deviation RDW Coeff of [place] Plt Count MPV Immature Gran % (Auto) Neut % (Auto) Lymph % (Auto) [place] % (Auto) Eos % (Auto) Baso % (Auto) Neut # (Auto) Lymph # (Auto) [place] # (Auto) Eos # (Auto) Baso # (Auto) Immature Gran # (Auto) PT INR Sodium Potassium Chloride Carbon Dioxide Anion Gap BUN Creatinine Est Cr Clr Drug Dosing Est GFR ( Amer) Est GFR (Non-Af Amer) BUN/Creatinine Ratio Glucose Calcium Magnesium Total Bilirubin AST ALT Alkaline Phosphatase Troponin I High Sens Total Protein Albumin Globulin Albumin/Globulin Ratio TSH 0.716 Urine Color Yellow Urine Appearance Clear Urine pH 7.5 Ur Specific [place] 1.016 Urine Protein Negative Urine Glucose (UA) Negative Urine Ketones Negative Urine Blood Negative Urine Nitrite Negative Urine Bilirubin Negative Urine Urobilinogen Negative Ur Leukocyte Esterase Trace H Urine WBC (Auto) 1-5 Urine RBC (Auto) 0-4 U Hyaline Cast (Auto) 0 U Epithel Cells (Auto) 5-10 H Urine Bacteria (Auto) Negative SARS-CoV-2 (PCR) NEGATIVE Influenza Type A (PCR) Negative Influenza Type B (PCR) Negative RSV (RT-PCR) Negative Medications Administered Acetaminophen (Acetaminophen 325 Mg Tab) 650 mg PO Q4H PRN PRN Reason: pain/fever Stop: 11/11/22 16:16 Last Admin: 10/13/22 11:32 Dose: 650 mg Documented By: Admin: 10/12/22 22:41 Dose: 650 mg Documented By: DARIANA Coding Level of Care Code 08998 U Intl Hosp Care Lvl 2 Diagnoses Dementia with behavioral disturbance F03.918 History of subdural hematoma Z86.79
--- NOTE | 2022-10-13 17:13 | Hospitalist Progress Note ---
Date of Service October 13, 2022 Assessment & Plan (1) Dementia with behavioral disturbance: Plan: per AL Soto's notes with addendum: Patient presenting from home after an episode of unresponsiveness this morning. Patient has since returned to his baseline mental status. Patient with history of dementia with increasing episodes of agitation and wandering over the past few months. Patient currently calm and cooperative. Per family, patient has been trialed on Risperdal however this resulted in increased agitation. Patient's has been giving him Tylenol PM at home. KRISTINA Olvera, psych consult for further recommendations Case management consult, may need placement at discharge 10/13 has been pleasant, cooperative, calm Psych consulted continue usual meds avoid antihistamines, benzos, etc CM consult for SNF (2) History of subdural hematoma: Plan: History of traumatic SDH 03/[address] : unchanged from prior and shows signs of chronic SDH DVT prophylaxis SCDs due to SDH Admission and Anticipated Discharge Date Admission Date: October 12, 2022 Subjective ff up for dementia with beh disturbance, etc seen sitting up in chair, alert pleasantly confused feels fine overall no chest pain, dyspnea, palpitations, dizziness no headache, dizziness, focal neuro symptoms Review of Systems Review of Systems: all noted and negative except for above Physical Exam Physical Exam: General- oriented x 1-2, not in distress, speaks in sentences with no effort or accessory muscle use Eyes- anicteric Neck- no JVD Lungs- clear BS bilaterally, no rales/wheezes Heart- normal rate, regular rhythm; no murmurs Abdomen- normal bowel sounds, nondistended, soft, no tenderness Extremities- no pretibial edema, no calf tenderness Neuro- alert, oriented x 3; no gross focal neurologic deficits Skin- warm & dry Results & Data Results & Data ([facility]) Vital Signs (Past 12 Hours) Vital Signs Temp Pulse Resp BP Pulse Ox O2 Del Method 10/13/22 15:02 36.6 C 96 H 18 133/80 98 Room Air 10/13/22 07:50 Room Air 10/13/22 07:20 36.5 C 96 H 18 122/77 98 Room Air all noted and reviewed including below
--- NOTE | 2022-10-13 18:03 | Emergency Department Note ---
Impression & Plan Episode of unresponsiveness, Dementia with behavioral disturbance, History of subdural hematoma ED Provider Note CHIEF COMPLAINT: Altered mental status HISTORY OF PRESENT ILLNESS: This 82 yo male patient presents to the emergency department with c/o an episode of unresponsiveness. Patient's reports that she went into his bedroom at around 9-9 30 this morning and noted that the patient was still asleep. She asked him if he wanted coffee and he did not respond. She then got closer to the patient and noted that his eyes were open but he would not respond to her verbal questioning. She tried to wake him up to no avail. She called her daughter who also tried to wake him, but he was "out." They called the ambulance who arrived and found the patient to be stable from a vital sign standpoint but confused. The patient has had no recent fevers, chills, cough, urinary difficulties. does not believe that he would have the capability of taking any additional medications on his own. He is not currently taking any medications for his dementia does not take any blood thinn ers. REVIEW OF SYSTEMS: A review of systems was performed with positives and pertinent negatives listed in the history of present illness. 10 systems were reviewed and are otherwise negative. ALLERGIES: see below MEDICATIONS: see below PMH: see below SOCIAL HISTORY: see below DDx: Infection, dehydration, metabolic abnormality, hypo/hyperglycemia, electrolyte disturbance, anemia, hypoxia, cardiac sources, intracerebral event, toxicologic, neurologic, as well as other pathologies. PHYSICAL EXAM: Vital signs reviewed. General: Well-appearing 82 yo male, in no significant distress. HEENT: No scleral icterus, PERRLA, neck supple. Atraumatic. MMM. Cardiovascular: Regular rate and rhythm, no extra sounds. Pulmonary: Clear to auscultation bilaterally, normal work of breathing. Abdomen: Soft, nontender, nondistended, positive bowel sounds. Musculoskeletal: Atraumatic, no peripheral edema. Neurologic: Patient awake alert and speaking, asking where he is and why. Follows commands. Cranial nerves II through XII are grossly intact. Moves all extremities equally. Skin: Warm, dry, no rash EMERGENCY DEPARTMENT COURSE/MDM: This patient was evaluated and appeared to be in no significant distress. IV access was obtained and laboratory work was drawn. The patient was awake and conversant on his arrival to the emergency department the etiology of the episode prior to arrival is unclear. 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 Patient's and daughter arrived in the emergency department I did have the opportunity to speak with them about the incident. It does not appear that the patient had any seizure activity or recent falls. Patient's stated she has been using Tylenol PM in the morning and 2 in the evening to help with the patient's agitation. He has not been sleeping well since his dementia has been progressing. The day previous to this episode, the patient had 24 hours of being awake and confused. I did not find any source of infection or metabolic abnormality, it does not appear that the patient's previous head bleed has much to do with today's presentation. I s uspect the patient was sedated from the Benadryl and the previous days sleep disturbance. Nonetheless as the patient was not able to be awakened, and daughter feel that he was altered/unresponsive and the patient's is having great difficulty managing him hospitalist service has been consulted for further management. MONITORING: An order for cardiac monitoring was placed and the patient is noted to be in a NSR at 96 beats per minute. RADIOLOGY: see below EKG: Poor quality baseline for interpretation, likely sinus rhythm at 85 bpm. No PVC, no PAC. Appears to have normal ST segments. Normal QTC of 437. DISPOSITION: Admission Past Med/Surg History Medical History BPH (benign prostatic hyperplasia) Dementia SDH (subdural hematoma) Surgical History H/O inguinal hernia repair Family History Other Family history unobtainable Social History Smoking Status: Unknown if ever smoked Tobacco Type: Cigarettes Smoking End Date: Pt confused and disoriented. Poor historian.; Hx Alcohol Use: No (Pt confused and disoriented. Poor historian.) Preferred Language: Tristanian Communication Ability: Effective Supervisor [employer] Required: No Beliefs That Will Affect Care: None marital status: Current Living Situation: Significant Other Current Living Situation Comment: Pt confused and disoriented. Poor historian. Feels Safe at Home: Declines to Answer Assistive Devices: None Allergies Allergies Allergy/AdvReac Type Severity Reaction Status Date / Time No Known Allergies Allergy Verified 04/22/22 22:20 Home Meds Home Medications Medication Instructions Recorded Confirmed diphenhydramine 25 1 tab PO DAILY 10/12/22 10/12/22 mg-acetaminophen 500 mg tablet (Tylenol PM Extra Strength) diphenhydramine 25 2 tab PO HS 10/12/22 10/12/22 mg-acetaminophen 500 mg tablet (Tylenol PM Extra Strength) Results & Data (ED) Home Medications Current Medication List: was personally reviewed by me Laboratory Data Attestation: I reviewed the patient's lab results. Result diagrams: 10/12/22 10:50 10/12/22 10:50 Lab Results 10/12/22 10/12/22 10/12/22 Range/Units 10:50 10:50 10:50 WBC 5.50 (4.8-10.8) K/ul RBC 4.86 (4.63-6.08) M/uL Hgb 15.4 (14.0-18.0) g/dl Hct 44.5 (40.1-51.0) % MCV 91.6 (80.0-100.0) fL MCH 31.7 (25.0-34.0) pg MCHC 34.6 (32.0-36.0) g/dL RDW Std Deviation 42.6 (36.4-46.3) fL RDW Coeff of [place] 12.8 (11.5-14.5) % Plt Count 220 (130-400) K/uL MPV 8.0 L (9.4-12.4) fL Immature Gran % (Auto) 0.2 % Neut % (Auto) 64.4 % Lymph % (Auto) 25.1 % [place] % (Auto) 6.7 % Eos % (Auto) 2.7 % Baso % (Auto) 0.9 % Neut # (Auto) 3.54 (1.4-6.5) K/uL Lymph # (Auto) 1.38 (1.2-3.4) K/uL [place] # (Auto) 0.37 (0.24-0.82) K/uL Eos # (Auto) 0.15 (0-0.50) K/uL Baso # (Auto) 0.05 (0-0.2) K/uL Immature Gran # (Auto) 0.01 (0.00-0.02) K/uL PT 10.9 (9.0-12.0) Seconds INR 1.0 (0.9-1.1) Sodium 141 (136-145) mmol/L Potassium 4.0 (3.5-5.1) mmol/L Chloride 106 (98-107) mmol/L Carbon Dioxide 28 (21-32) mmol/L Anion Gap 7 (3-11) BUN 23 (6-23) mg/dl Creatinine 0.84 (0.6-1.4) mg/dl Est Cr Clr Drug Dosing 72.4 ml/min Est GFR ( Amer) 95.8 ml/min Est GFR (Non-Af Amer) 82.7 ml/min BUN/Creatinine Ratio 27.4 H (10-20) Glucose 95 (70-99(Fasting)) mg/dl Calcium 9.6 (8.5-10.1) mg/dl Magnesium 2.4 (1.7-2.4) mg/dl Total Bilirubin 0.7 (0.2-1.0) mg/dl AST 15 (13-39) U/L ALT 18 (7-52) U/L Alkaline Phosphatase 53 (34-104) U/L Troponin I High Sens 4.4 (0-20) pg/ml Total Protein 7.6 (6.0-8.3) gm/dl Albumin 4.2 (3.4-5.0) gm/dl Globulin 3.4 (2.5-4.0) gm/dl Albumin/Globulin Ratio 1.2 (0.9-2) TSH (0.300-4.500) uIu/ml Urine Color Urine Appearance (Clear) Urine pH (4.5-7.5) Ur Specific [place] (1.000-1.030) Urine Protein (Negative) Urine Glucose (UA) (Negative) Urine Ketones (Negative) Urine Blood (Negative) Urine Nitrite (Negative) Urine Bilirubin (Negative) Urine Urobilinogen (Negative) Ur Leukocyte Esterase (Negative) Urine WBC (Auto) (0-5) /hpf Urine RBC (Auto) (0-4) /hpf U Hyaline Cast (Auto) (0-5) /lpf U Epithel Cells (Auto) (0-5) /lpf Urine Bacteria (Auto) (Negative) SARS-CoV-2 (PCR) (Negative) Influenza Type A (PCR) (Neg) Influenza Type B (PCR) (Neg) RSV (RT-PCR) (Neg) 10/12/22 10/12/22 10/12/22 Range/Units 10:50 11:00 11:55 WBC (4.8-10.8) K/ul RBC (4.63-6.08) M/uL Hgb (14.0-18.0) g/dl Hct (40.1-51.0) % MCV (80.0-100.0) fL MCH (25.0-34.0) pg MCHC (32.0-36.0) g/dL RDW Std Deviation (36.4-46.3) fL RDW Coeff of [place] (11.5-14.5) % Plt Count (130-400) K/uL MPV (9.4-12.4) fL Immature Gran % (Auto) % Neut % (Auto) % Lymph % (Auto) % [place] % (Auto) % Eos % (Auto) % Baso % (Auto) % Neut # (Auto) (1.4-6.5) K/uL Lymph # (Auto) (1.2-3.4) K/uL [place] # (Auto) (0.24-0.82) K/uL Eos # (Auto) (0-0.50) K/uL Baso # (Auto) (0-0.2) K/uL Immature Gran # (Auto) (0.00-0.02) K/uL PT (9.0-12.0) Seconds INR (0.9-1.1) Sodium (136-145) mmol/L Potassium (3.5-5.1) mmol/L Chloride (98-107) mmol/L Carbon Dioxide (21-32) mmol/L Anion Gap (3-11) BUN (6-23) mg/dl Creatinine (0.6-1.4) mg/dl Est Cr Clr Drug Dosing ml/min Est GFR ( Amer) ml/min Est GFR (Non-Af Amer) ml/min BUN/Creatinine Ratio (10-20) Glucose (70-99(Fasting)) mg/dl Calcium (8.5-10.1) mg/dl Magnesium (1.7-2.4) mg/dl Total Bilirubin (0.2-1.0) mg/dl AST (13-39) U/L ALT (7-52) U/L Alkaline Phosphatase (34-104) U/L Troponin I High Sens (0-20) pg/ml Total Protein (6.0-8.3) gm/dl Albumin (3.4-5.0) gm/dl Globulin (2.5-4.0) gm/dl Albumin/Globulin Ratio (0.9-2) TSH 0.716 (0.300-4.500) uIu/ml Urine Color Yellow Urine Appearance Clear (Clear) Urine pH 7.5 (4.5-7.5) Ur Specific [place] 1.016 (1.000-1.030) Urine Protein Negative (Negative) Urine Glucose (UA) Negative (Negative) Urine Ketones Negative (Negative) Urine Blood Negative (Negative) Urine Nitrite Negative (Negative) Urine Bilirubin Negative (Negative) Urine Urobilinogen Negative (Negative) Ur Leukocyte Esterase Trace H (Negative) Urine WBC (Auto) 1-5 (0-5) /hpf Urine RBC (Auto) 0-4 (0-4) /hpf U Hyaline Cast (Auto) 0 (0-5) /lpf U Epithel Cells (Auto) 5-10 H (0-5) /lpf Urine Bacteria (Auto) Negative (Negative) SARS-CoV-2 (PCR) NEGATIVE (Negative) Influenza Type A (PCR) Negative (Neg) Influenza Type B (PCR) Negative (Neg) RSV (RT-PCR) Negative (Neg) Administered Medications Acetaminophen (Acetaminophen 325 Mg Tab) 650 mg PO Q4H PRN PRN Reason: pain/fever Stop: 11/11/22 16:16 Last Admin: 10/20/22 17:02 Dose: 650 mg Documented By: Admin: 10/18/22 07:42 Dose: 650 mg Documented By: Admin: 10/17/22 20:30 Dose: 650 mg Documented By: Admin: 10/13/22 21:30 Dose: 650 mg Documented By: Admin: 10/13/22 11:32 Dose: 650 mg Documented By: Admin: 10/12/22 22:41 Dose: 650 mg Documented By: DARIANA Olanzapine (Olanzapine 10 Mg/2.1 Ml Sdv) 5 mg IM Q12H PRN PRN Reason: Agitation Stop: 11/11/22 16:16 Last Admin: 10/13/22 22:35 Dose: 5 mg Documented By: ESG Olanzapine (Olanzapine 2.5 Mg Tab) 2.5 mg PO Q24H ARSENIO Stop: 11/13/22 16:59 Last Admin: 10/20/22 16:02 Dose: 2.5 mg Documented By: Admin: 10/19/22 16:03 Dose: 2.5 mg Documented By: Admin: 10/18/22 16:08 Dose: 2.5 mg Documented By: Admin: 10/17/22 16:25 Dose: 2.5 mg Documented By: Admin: 10/16/22 16:53 Dose: 2.5 mg Documented By: Admin: 10/15/22 15:55 Dose: 2.5 mg Documented By: Admin: 10/14/22 17:46 Dose: 2.5 mg Documented By: GURPREET Imaging Data Radiologist's Impression: Head CT 10/12/22 10:35 CT SCAN OF THE BRAIN WITHOUT IV CONTRAST CLINICAL HISTORY: Change in mental status. COMPARISON STUDY: CT scans of the brain dated 09/20/2022 and 04/22/2022. TECHNIQUE: Unenhanced axial CT scan of the brain is performed from the vertex to the skull base. A dose lowering technique was utilized adhering to the principles of ALARA. CT DOSE: 537.48 mGy.cm FINDINGS: Brain parenchyma: Again seen are mixed attenuation subdural hemorrhages along both convexities. This measures up to 12 mm on the left and up to 10 mm on the right. Hyperdense foci are seen within both subdural hemorrhages anteriorly, and these may be acute on chronic. These cause mild mass effect with effacement of the subjacent cortical sulci. No midline shift is seen. There is age-related involutional change noting mild subcortical and periventricular microangiopathic disease. There is no parenchymal hematoma or evidence of acute territorial ischemia by CT criteria. Mineralization is noted in the basal ganglia. Dao- white matter differentiation is preserved. Ventricles, sulci, cisterns: Prominent secondary to involutional change. Intracranial vasculature: There is atherosclerotic calcification of the cavernous carotid arteries. Calvarium: Unremarkable. Sinuses and mastoids: The paranasal sinuses are clear. There is evidence of previous left mastoid surgery, with trace fluid in the resection cavity. The right mastoid air cells are well pneumatized. Cerumen is noted in the external auditory canals. Orbits: The bony orbits are grossly intact. There are bilateral ocular lens implants. IMPRESSION: 1. Bilateral subdural hemorrhages as above, similar in size to 09/20/2022 examination. These contain internal hyperdense foci and foci of acute on chronic hemorrhage are not excluded. 2. These cause mild mass effect with effacement of the subjacent cortical sulci. No midline shift is seen. 3. There is no parenchymal hematoma or evidence of acute territorial ischemia by CT criteria. ACT 112: Negative or not required by law. Electronically signed by: Kingsley Wallace M.D. 10/12/2022 11:14 AM Chest X-Ray 10/12/22 10:36 SINGLE VIEW CHEST CLINICAL HISTORY: Generalized weakness. FINDINGS: An AP, portable, upright chest radiograph is compared to study dated 04/22/2022. The heart is enlarged noting atherosclerotic calcification of the thoracic aorta. The pulmonary vasculature is noncongested. Chronic interstitial thickening similar to previous. There is bibasilar scarring/atelectasis. The lungs and pleural spaces are otherwise clear. No pneumothorax is seen. The skeletal structures are osteopenic. There are healed left-sided rib fractures. IMPRESSION: Cardiomegaly with no acute cardiopulmonary abnormality. ACT 112: Negative or not required by law. Electronically signed by: Kingsley Wallace M.D. 10/12/2022 11:26 AM Blood Pressure Blood Pressure Findings: Normal blood pressure Blood Pressure Disposition: did not require urgent referral Discharge Plan Visit Data Chief Complaint: Unresponsive ED Provider: Nicole Gibbs Discharge Problem: Episode of unresponsiveness, Dementia with behavioral disturbance, History of subdural hematoma Patient Disposition: Admitted As Inpatient Discharge Instructions Interventions: ED Discharge Assessment Last Done: 10/12/22 16:03
--- NOTE | 2022-10-13 22:13 | Electrocardiogram Report ---
Test Reason : Blood Pressure : / mmHG Vent. Rate : 085 BPM Atrial Rate : 220 BPM P-R Int : 000 ms QRS Dur : 080 ms QT Int : 368 ms P-R-T Axes : 000 033 059 degrees QTc Int : 437 ms Poor data quality, interpretation may be adversely affected Sinus rhythm Nonspecific ST abnormality Abnormal ECG When compared with ECG of 20-SEP-2022 10:15, Prior tracing has arm lead reversal Confirmed by Massimo Ferreira ([id number]) on 10/13/2022 10:13:05 PM Referred By: REFERRED SELF Confirmed By:Massimo Ferreira
--- NOTE | 2022-10-14 16:59 | Hospitalist Progress Note ---
Date of Service October 14, 2022 Assessment & Plan (1) Dementia with behavioral disturbance: Plan: per AL Soto's notes with addendum: Patient presenting from home after an episode of unresponsiveness this morning. Patient has since returned to his baseline mental status. Patient with history of dementia with increasing episodes of agitation and wandering over the past few months. Patient currently calm and cooperative. Per family, patient has been trialed on Risperdal however this resulted in increased agitation. Patient's has been giving him Tylenol PM at home. PRN Zyprexa, psych consult for further recommendations Case management consult, may need placement at discharge 10/14 Required IM Zyprexa overnight for combativeness Discussed with Dr. Mckeon We will start Zyprexa 2.5 mg p.o. at 5 PM today Monitor closely (2) History of subdural hematoma: Plan: History of traumatic SDH 03/[address] : unchanged from prior and shows signs of chronic SDH DVT prophylaxis SCDs due to SDH Admission and Anticipated Discharge Date Admission Date: October 12, 2022 Subjective Follow-up for dementia with behavioral disturbance, etc. Patient developed combativeness overnight, requiring IM Zyprexa Seen in the morning, patient in deep sleep Not in distress Reevaluate in the afternoon, patient still sound asleep Discussed with RN Kayla Cesar visited patient around noon time, patient was calm and cooperative Appetite not that great No other issues per product design engineer of Systems Review of Systems: all noted and negative except for above Physical Exam Physical Exam: General- oriented x 2, not in distress, speaks in sentences with no effort or accessory muscle use Eyes- anicteric Neck- no JVD Lungs- clear breath sounds bilaterally, no crackles, no wheezing Heart- normal rate, regular rhythm; no murmurs Abdomen- normal bowel sounds, nondistended, soft Extremities- no pretibial edema, no calf tenderness Neuro-patient sleeping Skin- warm & dry Results & Data Results & Data ([facility]) Vital Signs (Past 12 Hours) Vital Signs Temp Pulse Resp BP Pulse Ox O2 Del Method 10/14/22 09:55 Room Air 10/14/22 10:05 36.2 C L 105 H 18 135/72 96 Room Air all noted and reviewed including below
[2022-10-14] MEDS: OLANZAPINE 2.5 MG TAB PO SCH (17:46)
--- NOTE | 2022-10-15 12:58 | Communication Note ---
Date of Service: October 15, 2022 patient calmer last pm with scheduled PO Zyprexa. Still variable PO and confused but cooperative. Decreased reliance on 1 on 1 . will follow.
[2022-10-15] MEDS: OLANZAPINE 2.5 MG TAB PO SCH (15:55)
--- NOTE | 2022-10-15 17:10 | Hospitalist Progress Note ---
Date of Service October 15, 2022 Assessment & Plan (1) Dementia with behavioral disturbance: Plan: per AL Soto's notes with addendum: Patient presenting from home after an episode of unresponsiveness this morning. Patient has since returned to his baseline mental status. Patient with history of dementia with increasing episodes of agitation and wandering over the past few months. Patient currently calm and cooperative. Per family, patient has been trialed on Risperdal however this resulted in increased agitation. Patient's has been giving him Tylenol PM at home. PRN Zyprexa, psych consult for further recommendations Case management consult, may need placement at discharge 10/15 Required IM Zyprexa evening of October 14 for combativeness Discussed with Dr. Mckeon-psychiatry service Recommend Zyprexa 2.5 mg p.o. at 5 PM Calm, cooperative today Monitor closely Case management on board, patient will need to [facility] (2) History of subdural hematoma: Plan: History of traumatic SDH 03/[address] : unchanged from prior and shows signs of chronic SDH DVT prophylaxis SCDs due to SDH Admission and Anticipated Discharge Date Admission Date: October 12, 2022 Subjective Follow-up for dementia with behavioral disturbance, etc. Seen with one-to-one sitter at the bedside Patient is sitting up in bed, eating candies Confused, but calm and cooperative Denies headache, dizziness, chest pain, shortness of breath abdominal pain, nausea vomiting No other symptoms Review of Systems Review of Systems: all noted and negative except for above Physical Exam Physical Exam: General- oriented x 1, not in distress, speaks in sentences with no effort or accessory muscle use Eyes- anicteric Neck- no JVD Lungs- clear breath sounds bilaterally, no crackles or wheezing Heart- normal rate, regular rhythm; no murmurs Abdomen- normal bowel sounds, nondistended, soft, nontender Extremities- no pretibial edema, no calf tenderness Neuro- alert, oriented x 1; no gross focal neurologic deficits Skin- warm & dry Results & Data Results & Data ([facility]) Vital Signs (Past 12 Hours) Vital Signs Temp Pulse Resp BP Pulse Ox O2 Del Method 10/15/22 14:41 36.3 C L 118 H 18 127/75 96 Room Air 10/15/22 08:34 37.0 C 102 H 18 128/82 93 Room Air all noted and reviewed including below
--- NOTE | 2022-10-16 12:01 | Communication Note ---
Date of Service: October 16, 2022 interim progress reviewed, no acute issues overnight, redirectible with 1 on 1 this am, baseline confusion. Tolerating Zyprexa.
--- NOTE | 2022-10-16 12:39 | Hospitalist Progress Note ---
Date of Service October 16, 2022 Assessment & Plan (1) Dementia with behavioral disturbance: Plan: Patient presenting from home after an episode of unresponsiveness this morning. Patient has since returned to his baseline mental status. Patient with history of dementia with increasing episodes of agitation and wandering over the past few months. Patient currently calm and cooperative. Per family, patient has been trialed on Risperdal however this resulted in i ncreased agitation. Case management consult, may need placement at discharge Plan: Psychiatry on board; patient tolerating Zyprexa well. He has not required IM Zyprexa in last 48 hours. Not one-to-one currently. (2) History of subdural hematoma: Plan: History of traumatic SDH 03/[address] : unchanged from prior and shows signs of chronic SDH DVT prophylaxis SCDs due to SDH Dispositionpatient appears to be calm and cooperative. He has not required IM Zyprexa in last 48 hours. Medically stable for discharge. Case management on board. Discussed with his at bedside. Admission and Anticipated Discharge Date Admission Date: October 12, 2022 Subjective Patient seen and examined at bedside. He is sitting up on the chair at the side of the bed eating breakfast. He is oriented to self. Review of Systems Review of Systems: All systems reviewed & are unremarkable except as noted in Subjective Physical Exam Physical Exam: General- oriented x 1, not in distress, speaks in sentences with no effort or accessory muscle use Eyes- anicteric Neck- no JVD Lungs- clear breath sounds bilaterally, no crackles or wheezing Heart- normal rate, regular rhythm; no murmurs Abdomen- normal bowel sounds, nondistended, soft, nontender Extremities- no pretibial edema, no calf tenderness Neuro- alert, oriented x 1; no gross focal neurologic deficits Skin- warm & dry Results & Data Results & Data ([facility]) Vital Signs (Past 12 Hours) Vital Signs Temp Pulse Resp BP Pulse Ox O2 Del Method 10/16/22 10:10 36.5 C 96 H 18 131/83 98 Room Air
[2022-10-16] MEDS: OLANZAPINE 2.5 MG TAB PO SCH (16:53)
--- NOTE | 2022-10-17 11:22 | Hospitalist Progress Note ---
Date of Service October 17, 2022 Assessment & Plan (1) Dementia with behavioral disturbance: Plan: Patient presenting from home after an episode of unresponsiveness this morning. Patient has since returned to his baseline mental status. Patient with history of dementia with increasing episodes of agitation and wandering over the past few months. Patient currently calm and cooperative. Per family, patient has been trialed on Risperdal however this resulted in i ncreased agitation. Case management consult, may need placement at discharge Plan: Psychiatry on board; patient tolerating Zyprexa well. He has not required IM Zyprexa in last 48 hours. Not one-to-one currently. (2) History of subdural hematoma: Plan: History of traumatic SDH 03/[address] : unchanged from prior and shows signs of chronic SDH DVT prophylaxis SCDs due to SDH Disposition appears to be calm and cooperative. He has not required IM Zyprexa since 10/14. Medically stable for discharge. Case management on board. Will update today. Admission and Anticipated Discharge Date Admission Date: October 12, 2022 Supervising Physician Co-Signing Physician Notes Patient seen and examined independently. Agree with above documentation by Chelsey Cervantes PA-C Is comfortably sitting up on the chair; not in any distress. Last administration of IM Zyprexa was on 10/13. Placement pending; likely Friday as per case management Subjective Patient seen and examined at bedside. Feeling well today, enjoying watching snow. He is sitting up on the chair at the side of the bed eating breakfast. He is oriented to self and pleasantly confused but able to be redirected. Denies any new symptoms or pain overnight. No fever, chills, chest pain, abdominal pain or SOB. Review of Systems Review of Systems: At least ten systems reviewed and negative except as noted in the HPI. Physical Exam Physical Exam: Gen: WD/WN, NAD, sitting in bedside chair, A&Ox1, pleasantly confused HEENT: Normocephalic, atraumatic, conjunctivae moist, sclerae anicteric, mucous membranes moist Lung: Clear to Auscultation bilaterally, no wheezes/rales/rhonchi Heart: Regular rate, regular rhythm, no murmurs, rubs, or gallops Abdomen: Soft, NT, ND +BS x 4 Extremities: no edema Skin: Warm, no rash Results & Data Results & Data ([facility]) Vital Signs (Past 12 Hours) Vital Signs Temp Pulse Resp BP Pulse Ox O2 Del Method 10/17/22 07:57 36.4 C L 102 H 18 152/91 H 97 Room Air 10/16/22 23:45 36.8 C 80 14 124/82 98 Room Air
[2022-10-17] MEDS: OLANZAPINE 2.5 MG TAB PO SCH (16:25)
[2022-10-17] MEDS: ACETAMINOPHEN 325 MG TAB PO PRN (20:30)
[2022-10-18] MEDS: ACETAMINOPHEN 325 MG TAB PO PRN (07:42)
--- NOTE | 2022-10-18 12:25 | Hospitalist Progress Note ---
Date of Service October 18, 2022 Assessment & Plan (1) Dementia with behavioral disturbance: Plan: Patient presenting from home after an episode of unresponsiveness this morning. Patient has since returned to his baseline mental status. Patient with history of dementia with increasing episodes of agitation and wandering over the past few months. Patient currently calm and cooperative. Per family, patient has been trialed on Risperdal however this resulted in i ncreased agitation. Case management consult, may need placement at discharge Plan: Psychiatry on board; patient tolerating Zyprexa well. He has not required IM Zyprexa since 10/14 Not one-to-one currently. (2) History of subdural hematoma: Plan: History of traumatic SDH 03/[address] : unchanged from prior and shows signs of chronic SDH DVT prophylaxis SCDs due to SDH Disposition appears to be calm and cooperative. He has not required IM Zyprexa since 10/14. Medically stable for discharge. Case management on board. updated on 10/17/22 over the phone. Bed available at [facility] for Friday. Admission and Anticipated Discharge Date Admission Date: October 12, 2022 Supervising Physician Co-Signing Physician Notes Patient seen and examined independently. Agree with above documentation by Chelsey Cervantes PA-C Has not required IM Zyprexa in the last 3 days. Compliant and cooperative Discharge when placement is available. Subjective Patient seen and examined at bedside. Feeling well today and talking about his . Lying in bed resting. He is oriented to self and pleasantly confused but able to be redirected. Denies any new symptoms or pain overnight. No fever, chills, chest pain, abdominal pain or SOB. Review of Systems Review of Systems: At least ten systems reviewed and negative except as noted in the HPI. Physical Exam Physical Exam: Gen: WD/WN, NAD, lying in bed, A&Ox1, pleasantly confused HEENT: Normocephalic, atraumatic, conjunctivae moist, sclerae anicteric, mucous membranes moist Lung: Clear to Auscultation bilaterally, no wheezes/rales/rhonchi Heart: Regular rate, regular rhythm, no murmurs, rubs, or gallops Abdomen: Soft, NT, ND +BS x 4 Extremities: no edema Skin: Warm, no rash
[2022-10-18] MEDS: OLANZAPINE 2.5 MG TAB PO SCH (16:08)
--- NOTE | 2022-10-19 12:30 | Hospitalist Progress Note ---
Date of Service October 19, 2022 Assessment & Plan (1) Dementia with behavioral disturbance: Plan: Patient presenting from home after an episode of unresponsiveness this morning. Patient has since returned to his baseline mental status. Patient with history of dementia with increasing episodes of agitation and wandering over the past few months. Patient currently calm and cooperative. Per family, patient has been trialed on Risperdal however this resulted in i ncreased agitation. Case management consult, may need placement at discharge Plan: Psychiatry on board; patient tolerating Zyprexa well. He has not required IM Zyprexa since 10/14 Not one-to-one currently. (2) History of subdural hematoma: Plan: History of traumatic SDH 03/[address] : unchanged from prior and shows signs of chronic SDH DVT prophylaxis SCDs due to SDH Disposition appears to be calm and cooperative. He has not required IM Zyprexa since 10/14. Medically stable for discharge. Case management on board. Bed available at [facility] for Friday. Admission and Anticipated Discharge Date Admission Date: October 12, 2022 Subjective Patient seen and examined at bedside. He is comfortably lying in the bed; not in any distress. He is calm and cooperative. Review of Systems Review of Systems: All systems reviewed & are unremarkable except as noted in Subjective Physical Exam Physical Exam: General- oriented x 1, not in distress, speaks in sentences with no effort or accessory muscle use Eyes- anicteric Neck- no JVD Lungs- clear breath sounds bilaterally, no crackles or wheezing Heart- normal rate, regular rhythm; no murmurs Abdomen- normal bowel sounds, nondistended, soft, nontender Extremities- no pretibial edema, no calf tenderness Neuro- alert, oriented x 1; no gross focal neurologic deficits Skin- warm & dry
[2022-10-19] MEDS: OLANZAPINE 2.5 MG TAB PO SCH (16:03)
--- NOTE | 2022-10-20 11:49 | Hospitalist Progress Note ---
Date of Service October 20, 2022 Assessment & Plan (1) Dementia with behavioral disturbance: Plan: Patient presenting from home after an episode of unresponsiveness this morning. Patient has since returned to his baseline mental status. Patient with history of dementia with increasing episodes of agitation and wandering over the past few months. Patient currently calm and cooperative. Per family, patient has been trialed on Risperdal however this resulted in i ncreased agitation. Case management consult, may need placement at discharge Plan: Psychiatry on board; patient tolerating Zyprexa well. He has not required IM Zyprexa since 10/14 Not one-to-one currently. (2) History of subdural hematoma: Plan: History of traumatic SDH 03/[address] : unchanged from prior and shows signs of chronic SDH DVT prophylaxis SCDs due to SDH Disposition appears to be calm and cooperative. He has not required IM Zyprexa since 10/14. Medically stable for discharge. Case management on board. Bed available at [facility] for Friday. Admission and Anticipated Discharge Date Admission Date: October 12, 2022 Subjective Patient seen and examined at bedside. He is comfortably lying in the bed; not in any distress. No Overnight events Review of Systems Review of Systems: All systems reviewed & are unremarkable except as noted in Subjective Physical Exam Physical Exam: General- oriented x 1, not in distress, speaks in sentences with no effort or accessory muscle use Eyes- anicteric Neck- no JVD Lungs- clear breath sounds bilaterally, no crackles or wheezing Heart- normal rate, regular rhythm; no murmurs Abdomen- normal bowel sounds, nondistended, soft, nontender Extremities- no pretibial edema, no calf tenderness Neuro- alert, oriented x 1; no gross focal neurologic deficits Skin- warm & dry Results & Data Results & Data ([facility]) Vital Signs (Past 12 Hours) Vital Signs Temp Pulse Resp BP Pulse Ox O2 Del Method 10/20/22 07:13 36.7 C 99 H 17 122/78 96 Room Air
[2022-10-20] MEDS: OLANZAPINE 2.5 MG TAB PO SCH (16:02)
[2022-10-20] MEDS: ACETAMINOPHEN 325 MG TAB PO PRN (17:02)
--- NOTE | 2022-10-21 11:59 | Hospitalist Progress Note ---
Date of Service October 21, 2022 Assessment & Plan (1) Dementia with behavioral disturbance: Plan: Patient presenting from home after an episode of unresponsiveness this morning. Patient has since returned to his baseline mental status. Patient with history of dementia with increasing episodes of agitation and wandering over the past few months. Patient currently calm and cooperative. Per family, patient has been trialed on Risperdal however this resulted in i ncreased agitation. Case management consult, may need placement at discharge Plan: Patient tolerating Zyprexa well. He has not required IM Zyprexa since 10/14 Not one-to-one currently. (2) History of subdural hematoma: Plan: History of traumatic SDH 03/[address] : unchanged from prior and shows signs of chronic SDH DVT prophylaxis SCDs due to SDH Disposition appears to be calm and cooperative. He has not required IM Zyprexa since 10/14. Medically stable for discharge. Case management on board. Bed available at [facility] for Friday. Admission and Anticipated Discharge Date Admission Date: October 12, 2022 Subjective Patient is sitting up on the bed; not in distress. No period of agitation in the last 1 week requiring medication. Review of Systems Review of Systems: All systems reviewed & are unremarkable except as noted in Subjective Physical Exam Physical Exam: General- oriented x 1, not in distress, speaks in sentences with no effort or accessory muscle use Eyes- anicteric Neck- no JVD Lungs- clear breath sounds bilaterally, no crackles or wheezing Heart- normal rate, regular rhythm; no murmurs Abdomen- normal bowel sounds, nondistended, soft, nontender Extremities- no pretibial edema, no calf tenderness Neuro- alert, oriented x 1; no gross focal neurologic deficits Skin- warm & dry Results & Data Results & Data ([facility]) Vital Signs (Past 12 Hours) Vital Signs O2 Del Method 10/21/22 10:41 Room Air Laboratory Results Laboratory Results WBC 5.50 K/ul (4.8-10.8) 10/12/22 10:50 RBC 4.86 M/uL (4.63-6.08) 10/12/22 10:50 Hgb 15.4 g/dl (14.0-18.0) 10/12/22 10:50 Hct 44.5 % (40.1-51.0) 10/12/22 10:50 MCV 91.6 fL (80.0-100.0) 10/12/22 10:50 MCH 31.7 pg (25.0-34.0) 10/12/22 10:50 MCHC 34.6 g/dL (32.0-36.0) 10/12/22 10:50 RDW Std Deviation 42.6 fL (36.4-46.3) 10/12/22 10:50 RDW Coeff of [place] 12.8 % (11.5-14.5) 10/12/22 10:50 Plt Count 220 K/uL (130-400) 10/12/22 10:50 MPV 8.0 fL (9.4-12.4) L 10/12/22 10:50 Immature Gran % (Auto) 0.2 % 10/12/22 10:50 Neut % (Auto) 64.4 % 10/12/22 10:50 Lymph % (Auto) 25.1 % 10/12/22 10:50 [place] % (Auto) 6.7 % 10/12/22 10:50 Eos % (Auto) 2.7 % 10/12/22 10:50 Baso % (Auto) 0.9 % 10/12/22 10:50 Neut # (Auto) 3.54 K/uL (1.4-6.5) 10/12/22 10:50 Lymph # (Auto) 1.38 K/uL (1.2-3.4) 10/12/22 10:50 [place] # (Auto) 0.37 K/uL (0.24-0.82) 10/12/22 10:50 Eos # (Auto) 0.15 K/uL (0-0.50) 10/12/22 10:50 Baso # (Auto) 0.05 K/uL (0-0.2) 10/12/22 10:50 Immature Gran # (Auto) 0.01 K/uL (0.00-0.02) 10/12/22 10:50 PT 10.9 Seconds (9.0-12.0) 10/12/22 10:50 INR 1.0 (0.9-1.1) 10/12/22 10:50 Sodium 141 mmol/L (136-145) 10/12/22 10:50 Potassium 4.0 mmol/L (3.5-5.1) 10/12/22 10:50 Chloride 106 mmol/L (98-107) 10/12/22 10:50 Carbon Dioxide 28 mmol/L (21-32) 10/12/22 10:50 Anion Gap 7 (3-11) 10/12/22 10:50 BUN 23 mg/dl (6-23) 10/12/22 10:50 Creatinine 0.84 mg/dl (0.6-1.4) 10/12/22 10:50 Est Cr Clr Drug Dosing 72.4 ml/min 10/12/22 10:50 Est GFR ( Amer) 95.8 ml/min 10/12/22 10:50 Est GFR (Non-Af Amer) 82.7 ml/min 10/12/22 10:50 BUN/Creatinine Ratio 27.4 (10-20) H 10/12/22 10:50 Glucose 95 mg/dl (70-99(Fasting)) 10/12/22 10:50 Calcium 9.6 mg/dl (8.5-10.1) 10/12/22 10:50 Magnesium 2.4 mg/dl (1.7-2.4) 10/12/22 10:50 Total Bilirubin 0.7 mg/dl (0.2-1.0) 10/12/22 10:50 AST 15 U/L (13-39) 10/12/22 10:50 ALT 18 U/L (7-52) 10/12/22 10:50 Alkaline Phosphatase 53 U/L (34-104) 10/12/22 10:50 Troponin I High Sens 4.4 pg/ml (0-20) 10/12/22 10:50 Total Protein 7.6 gm/dl (6.0-8.3) 10/12/22 10:50 Albumin 4.2 gm/dl (3.4-5.0) 10/12/22 10:50 Globulin 3.4 gm/dl (2.5-4.0) 10/12/22 10:50 Albumin/Globulin Ratio 1.2 (0.9-2) 10/12/22 10:50 TSH 0.716 uIu/ml (0.300-4.500) 10/12/22 10:50 Urine Color Yellow 10/12/22 11:55 Urine Appearance Clear (Clear) 10/12/22 11:55 Urine pH 7.5 (4.5-7.5) 10/12/22 11:55 Ur Specific [place] 1.016 (1.000-1.030) 10/12/22 11:55 Urine Protein Negative (Negative) 10/12/22 11:55 Urine Glucose (UA) Negative (Negative) 10/12/22 11:55 Urine Ketones Negative (Negative) 10/12/22 11:55 Urine Blood Negative (Negative) 10/12/22 11:55 Urine Nitrite Negative (Negative) 10/12/22 11:55 Urine Bilirubin Negative (Negative) 10/12/22 11:55 Urine Urobilinogen Negative (Negative) 10/12/22 11:55 Ur Leukocyte Esterase Trace (Negative) H 10/12/22 11:55 Urine WBC (Auto) 1-5 /hpf (0-5) 10/12/22 11:55 Urine RBC (Auto) 0-4 /hpf (0-4) 10/12/22 11:55 U Hyaline Cast (Auto) 0 /lpf (0-5) 10/12/22 11:55 U Epithel Cells (Auto) 5-10 /lpf (0-5) H 10/12/22 11:55 Urine Bacteria (Auto) Negative (Negative) 10/12/22 11:55 SARS-CoV-2 (PCR) NEGATIVE (Negative) 10/12/22 11:00 Influenza Type A (PCR) Negative (Neg) 10/12/22 11:00 Influenza Type B (PCR) Negative (Neg) 10/12/22 11:00 RSV (RT-PCR) Negative (Neg) 10/12/22 11:[address] 10/12/22 10:35 CT SCAN OF THE BRAIN WITHOUT IV CONTRAST CLINICAL HISTORY: Change in mental status. COMPARISON STUDY: CT scans of the brain dated 09/20/2022 and 04/22/2022. TECHNIQUE: Unenhanced axial CT scan of the brain is performed from the vertex to the skull base. A dose lowering technique was utilized adhering to the principles of ALARA. CT DOSE: 537.48 mGy.cm FINDINGS: Brain parenchyma: Again seen are mixed attenuation subdural hemorrhages along both convexities. This measures up to 12 mm on the left and up to 10 mm on the right. Hyperdense foci are seen within both subdural hemorrhages anteriorly, and these may be acute on chronic. These cause mild mass effect with effacement of the subjacent cortical sulci. No midline shift is seen. There is age-related involutional change noting mild subcortical and periventricular microangiopathic disease. There is no parenchymal hematoma or evidence of acute territorial ischemia by CT criteria. Mineralization is noted in the basal ganglia. Dao- white matter differentiation is preserved. Ventricles, sulci, cisterns: Prominent secondary to involutional change. Intracranial vasculature: There is atherosclerotic calcification of the cavernous carotid arteries. Calvarium: Unremarkable. Sinuses and mastoids: The paranasal sinuses are clear. There is evidence of previous left mastoid surgery, with trace fluid in the resection cavity. The right mastoid air cells are well pneumatized. Cerumen is noted in the external auditory canals. Orbits: The bony orbits are grossly intact. There are bilateral ocular lens implants. IMPRESSION: 1. Bilateral subdural hemorrhages as above, similar in size to 09/20/2022 examination. These contain internal hyperdense foci and foci of acute on chronic hemorrhage are not excluded. 2. These cause mild mass effect with effacement of the subjacent cortical sulci. No midline shift is seen. 3. There is no parenchymal hematoma or evidence of acute territorial ischemia by CT criteria. ACT 112: Negative or not required by law. Electronically signed by: Kingsley Wallace M.D. 10/12/2022 11:14 AM Chest X-Ray 10/12/22 10:36 SINGLE VIEW CHEST CLINICAL HISTORY: Generalized weakness. FINDINGS: An AP, portable, upright chest radiograph is compared to study dated 04/22/2022. The heart is enlarged noting atherosclerotic calcification of the thoracic aorta. The pulmonary vasculature is noncongested. Chronic interstitial thickening similar to previous. There is bibasilar scarring/atelectasis. The lungs and pleural spaces are otherwise clear. No pneumothorax is seen. The skeletal structures are osteopenic. There are healed left-sided rib fractures. IMPRESSION: Cardiomegaly with no acute cardiopulmonary abnormality. ACT 112: Negative or not required by law. Electronically signed by: Kingsley Wallace M.D. 10/12/2022 11:26 AM
[2022-10-21] MEDS: OLANZAPINE 2.5 MG TAB PO SCH (16:43)
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
== END 2022-10-22 10:35 | DRG 884 ==
LOC: ED 10:36 → SUATTDRO 13:52 → 3E 13:52
DX: I62.03 Nontraumatic chronic subdural hemorrhage; R41.0 Disorientation, unspecified; F03.918 Unspecified dementia, unspecified severity, with other behavioral disturbance; N40.0 Benign prostatic hyperplasia without lower urinary tract symptoms

== ENCOUNTER 2024-04-21 02:33 | Inpatient (IN) ==
--- NOTE | 2024-04-21 02:35 | Emergency Department Note ---
Impression & Plan Acute hypoxemic respiratory failure, Multiple rib fractures, History of subdural hematoma, Frequent falls, Hemopneumothorax on right ED Provider Note NAME: THEO BAH AGE: 83 SEX: M : 1940 ARRIVES VIA: Ambulance INFORMANT: Patient, ED PROVIDER(S): Michael Whipple MD CHIEF COMPLAINT: Fall, hypoxia MEDICAL DECISION MAKING: Patient presents due to concern for fall as well as episode of hypotension and worsening confusion. IV was established and blood work was obtained. CT of the head cervical spine and abdomen pelvis were ordered. Chest x-ray shows concern for possible consolidation with associated effusion of the right chest. CT of the chest was also ordered. Blood work shows a white count of 12 with a hemoglobin of 10. The patient's platelet count is unremarkable kidney function is unremarkable. Patient's initial lactate was 4.5. Calcium of 8.5. Troponin negative. Urinalysis does not show evidence of obvious infection. Patient's head CT shows stable exam cervical spine CT negative. CT of the chest does show concern for large right pleural effusion with dependent complex components. Early large hemopneumothorax. Patient does have posterior right eighth through 12th rib fractures and right posterior 9 and 10 rib fractures with displacement. I did speak with the radiologist Dr. Reyna about this. I subsequently did speak with the patient's , Ana, who relates that the patient is DNR/DNI. I did state that given his demented status he likely would require intubation/heavy sedation which could lead to intubation given O2 requirement. I also did discuss that even after placement of the chest tube, given his demented status, he likely will try and remove this. She states she does not want him to be intubated for procedure and does not want a chest tube. I discussed that this could be fatal. She understands and confirms that she does not want this procedure to be done and that the patient is DNR/DNI. I did speak with the on- call hospital service Dr. Kennedy and the patient was admitted to the medicine service. Critical Care: I have personally spent 35 minutes of critical care time in direct management of this patient. This includes bedside care, interpretation of diagnostic studies, and testing, discussion with consultants, patient, and family members, and other require inpatient management activities. This 35 minutes is in excess of all separately billable procedures. Discussion w/ other healthcare providers: Dr. Reyna radiology Dr. Mariscal inpatient medicine service Prior /Outside records reviewed: I reviewed a prior visit note from February 24. The patient was seen due to concern for fall at that time. Patient reportedly fell back and struck his head. Patient was noted to have bilateral subdural hematomas which appear to be improved compared to prior per the note. Reviewed a discharge summary from Dr. Schafer from September 2022. 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 Differential diagnosis: Fracture, dislocation, contusion, strain, sprain, ICH, hemothorax, intra- abdominal injury, anemia among other causes were considered. Diagnostics, as interpreted by me: ECG: Sinus tachycardia, rate of 105, normal intervals and normal axis no STEMI. Cardiac monitoring: An order was placed for continuous cardiac monitoring. The monitor shows a rate of 105 with tachycardic and regular rhythm. Patient was placed on pulse oximetry Medical decision rules: None Imaging studies: I informally interpreted the patient's chest x-ray shows concern for right-sided consolidation and associated pleural effusion with formal report to follow. HPI: Patient presents from [facility] and does have a history of dementia. Reportedly was found at the bedside and reportedly had some garbled speech was not on his baseline at the time that he was found. Patient reportedly has been having some looser stools. No blood sugar was checked. Patient does have a known history of dementia. They do state that prior to transport from the care facility the patient had returned to his baseline. Patient reportedly is a DNR. Patient reportedly had an oxygen saturation of 87% on room air. Patient reportedly did have a recent fall and had a diagnosis of a right rib fracture. I did speak to the after the patient's initial presentation and she states the patient had a fall on Friday and had x-rays completed on Friday which showed the patient does have rib fractures. She states that the patient has fallen 4 times since Friday. She confirms that he is DNR/DNI. PAST MEDICAL HISTORY: See Below PAST SURGICAL HISTORY: See Below SOCIAL HISTORY: See Below HOME MEDICATIONS: See Below ALLERGIES: See Below VITALS: See Below PHYSICAL EXAMINATION: GENERAL: Mildly ill in appearance attempting to remove the nasal cannula EYE EXAM: Normal conjunctiva. PERRL, no anisocoria and EOM's grossly intact w/o pain. OROPHARYNX: Dry mucus membranes, grossly normal dentition. NECK: Trachea midline, no stridor. Supple, no nuchal rigidity, no adenopathy, non-tender. No signs of meningismus. FROM of the neck with good chin to chest and neck extension. Chest: Reproducible right-sided chest pain. LUNGS: Decreased breath sounds right base. Normal chest wall mechanics. HEART: Tachycardic and regular, no MRG. ABDOMEN: Abdomen soft, diffuse abdominal pain, no masses, no rebound or guarding. BACK: No CVA TTP. SKIN: No rashes and no bruising. UPPER EXTREMITIES: Upper extremities are grossly normal. LOWER EXTREMITIES: Likely aged bruising to the left knee no obvious deformity noted leg length discrepancy. No TTP to the hip knee or ankle bilaterally. NEURO EXAM: Awake and alert does not follow commands normal speech, moves all 4 extremities Past Med/Surg History Problem List (Updated 04/21/24 @ 06:56 by Michael Whipple MD) Hemopneumothorax on right (Acute) Acute hypoxemic respiratory failure (Acute) Loose stools Frequent falls (Acute) Multiple rib fractures (Acute) History of subdural hematoma (Acute) Dementia with behavioral disturbance (Acute) Medical History Episode of unresponsiveness BPH (benign prostatic hyperplasia) Dementia SDH (subdural hematoma) Surgical History H/O inguinal hernia repair Family History Other Family history unobtainable Social History Smoking Status: Unknown if ever smoked Tobacco Type: Cigarettes Hx Alcohol Use: No (Pt confused and disoriented. Poor historian.) Preferred Language: Arabic Communication Ability: Effective Supervisor Core Drilling Required: No Beliefs That Will Affect Care: None marital status: Current Living Situation: Significant Other Current Living Situation Comment: Pt confused and disoriented. Poor historian. Feels Safe at Home: Yes Assistive Devices: None Allergies Allergies Allergy/AdvReac Type Severity Reaction Status Date / Time No Known Allergies Allergy Verified 04/21/24 02:39 Home Meds Home Medications Medication Instructions Recorded Confirmed acetaminophen 325 mg tablet 650 mg PO BID 02/25/24 04/21/24 acetaminophen 325 mg tablet 650 mg PO Q6H PRN Fever Or Pain 02/25/24 04/21/24 bisacodyl 10 mg rectal suppository 10 mg VT DAILY PRN Constipation 02/25/24 04/21/24 (Dulcolax (bisacodyl)) divalproex 125 mg capsule,delayed 250 mg PO BID 02/25/24 04/21/24 release sprinkle (Depakote Sprinkles) magnesium hydroxide 400 mg/5 mL See Rx Instructions .Route 02/25/24 04/21/24 oral suspension (Milk of Magnesia) .COMPLEX PRN Constipation omeprazole 20 mg capsule,delayed 20 mg PO QAM 02/25/24 04/21/24 release polyethylene glycol 3350 17 gram 17 g PO QAM 02/25/24 04/21/24 oral powder packet (Miralax) sodium phosphates 19 gram-7 118 ml VT DAILY PRN Constipation 02/25/24 04/21/24 gram/118 mL enema (Fleet Enema) vit C 250 mg-E 90 mg-zinc 40 1 tab PO BID 02/25/24 04/21/24 mg-copper 1 vs-[id number] chew tablet (PreserVision AREDS-2) lidocaine 4 % topical patch 2 patch topical DAILY 04/21/24 04/21/24 olanzapine 5 mg tablet 5 mg PO HS 04/21/24 04/21/24 tramadol 50 mg tablet 50 mg PO Q6H PRN Severe Pain 04/21/24 04/21/24 (Scale Score 7-10) Results & Data (ED) Vital Signs Vital Signs - 24 hr 04/21/24 02:27 04/21/24 02:44 04/21/24 02:51 Temperature 35.3 C L Temperature Source Temporal Artery Scan Pulse Rate 105 H 108 H Pulse Rate from SpO2 Sensor Pulse Rhythm Regular Pulse Strength Normal Respiratory Rate 24 Respiratory Effort / Characteristics Non-Labored Respiratory Depth Normal Respiratory Pattern Regular Blood Pressure 99/56 L Blood Pressure Mean 70 Blood Pressure Position Lying Pulse Oximetry 93 93 Oxygen Delivery Method Free Flow/Blow- by Free Flow/Blow- by Oxygen Flow Rate Sepsis Recent Fever Within 48 Hours No Sepsis New/Unexplained Change in Mental Status No Sepsis Action Taken by Nursing Previously Notified 04/21/24 02:54 04/21/24 02:54 04/21/24 02:54 Temperature Temperature Source Pulse Rate Pulse Rate from SpO2 Sensor Pulse Rhythm Pulse Strength Respiratory Rate Respiratory Effort / Characteristics Respiratory Depth Respiratory Pattern Blood Pressure 93/60 L 93/60 L 93/60 L Blood Pressure Mean 66 66 66 Blood Pressure Position Pulse Oximetry Oxygen Delivery Method Oxygen Flow Rate Sepsis Recent Fever Within 48 Hours Sepsis New/Unexplained Change in Mental Status Sepsis Action Taken by Nursing 04/21/24 02:54 04/21/24 03:00 04/21/24 03:00 Temperature Temperature Source Pulse Rate 100 H 99 H Pulse Rate from SpO2 Sensor 99 H 98 H Pulse Rhythm Pulse Strength Respiratory Rate 23 22 Respiratory Effort / Characteristics Respiratory Depth Respiratory Pattern Blood Pressure 99/56 L Blood Pressure Mean 67 Blood Pressure Position Pulse Oximetry 91 93 Oxygen Delivery Method Oxygen Flow Rate Sepsis Recent Fever Within 48 Hours Sepsis New/Unexplained Change in Mental Status Sepsis Action Taken by Nursing 04/21/24 03:00 04/21/24 03:24 04/21/24 03:30 Temperature Temperature Source Pulse Rate 91 H Pulse Rate from SpO2 Sensor 90 Pulse Rhythm Pulse Strength Respiratory Rate 14 Respiratory Effort / Characteristics Respiratory Depth Respiratory Pattern Blood Pressure 99/56 L 91/57 L Blood Pressure Mean 67 68 Blood Pressure Position Pulse Oximetry 98 Oxygen Delivery Method Oxygen Flow Rate Sepsis Recent Fever Within 48 Hours Sepsis New/Unexplained Change in Mental Status Sepsis Action Taken by Nursing 04/21/24 03:30 04/21/24 03:30 04/21/24 03:30 Temperature Temperature Source Pulse Rate 87 Pulse Rate from SpO2 Sensor 88 Pulse Rhythm Pulse Strength Respiratory Rate 18 Respiratory Effort / Characteristics Respiratory Depth Respiratory Pattern Blood Pressure 91/57 L 91/57 L Blood Pressure Mean 68 68 Blood Pressure Position Pulse Oximetry 97 Oxygen Delivery Method Oxygen Flow Rate Sepsis Recent Fever Within 48 Hours Sepsis New/Unexplained Change in Mental Status Sepsis Action Taken by Nursing 04/21/24 03:39 04/21/24 04:02 04/21/24 04:02 Temperature Temperature Source Pulse Rate Pulse Rate from SpO2 Sensor 88 Pulse Rhythm Pulse Strength Respiratory Rate Respiratory Effort / Characteristics Respiratory Depth Respiratory Pattern Blood Pressure 84/66 L 84/66 L Blood Pressure Mean 70 70 Blood Pressure Position Pulse Oximetry 91 Oxygen Delivery Method Oxygen Flow Rate Sepsis Recent Fever Within 48 Hours Sepsis New/Unexplained Change in Mental Status Sepsis Action Taken by Nursing 04/21/24 04:03 04/21/24 04:16 04/21/24 04:16 Temperature Temperature Source Pulse Rate 92 H Pulse Rate from SpO2 Sensor 93 H Pulse Rhythm Pulse Strength Respiratory Rate 18 Respiratory Effort / Characteristics Respiratory Depth Respiratory Pattern Blood Pressure 98/80 L 98/80 L Blood Pressure Mean 83 83 Blood Pressure Position Pulse Oximetry 88 L Oxygen Delivery Method Oxygen Flow Rate Sepsis Recent Fever Within 48 Hours Sepsis New/Unexplained Change in Mental Status Sepsis Action Taken by Nursing 04/21/24 04:31 04/21/24 04:31 04/21/24 04:31 Temperature Temperature Source Pulse Rate Pulse Rate from SpO2 Sensor Pulse Rhythm Pulse Strength Respiratory Rate Respiratory Effort / Characteristics Respiratory Depth Respiratory Pattern Blood Pressure 94/61 L 94/61 L 94/61 L Blood Pressure Mean 71 71 71 Blood Pressure Position Pulse Oximetry Oxygen Delivery Method Oxygen Flow Rate Sepsis Recent Fever Within 48 Hours Sepsis New/Unexplained Change in Mental Status Sepsis Action Taken by Nursing 04/21/24 04:45 04/21/24 04:48 04/21/24 04:57 Temperature Temperature Source Pulse Rate 90 88 Pulse Rate from SpO2 Sensor 88 87 Pulse Rhythm Pulse Strength Respiratory Rate 14 18 Respiratory Effort / Characteristics Respiratory Depth Respiratory Pattern Blood Pressure Blood Pressure Mean Blood Pressure Position Pulse Oximetry 100 100 98 Oxygen Delivery Method Nasal Cannula Nasal Cannula Oxygen Flow Rate 4 2 Sepsis Recent Fever Within 48 Hours Sepsis New/Unexplained Change in Mental Status Sepsis Action Taken by Nursing 04/21/24 05:01 Temperature Temperature Source Pulse Rate Pulse Rate from SpO2 Sensor Pulse Rhythm Pulse Strength Respiratory Rate Respiratory Effort / Characteristics Respiratory Depth Respiratory Pattern Blood Pressure 95/75 L Blood Pressure Mean 85 Blood Pressure Position Pulse Oximetry Oxygen Delivery Method Oxygen Flow Rate Sepsis Recent Fever Within 48 Hours Sepsis New/Unexplained Change in Mental Status Sepsis Action Taken by Residential Medications Current Medication List: was personally reviewed by me Laboratory Data Attestation: I reviewed the patient's lab results. 04/21/24 03:25 04/21/24 03:12 Lab Results 04/21/24 04/21/24 04/21/24 Range/Units 02:55 03:12 03:25 WBC 12.96 H (4.8-10.8) K/ul RBC 3.47 L (4.70-6.10) M/uL Hgb 10.3 L (14.0-18.0) g/dl POC Hgb (14.0-18.0) g/dl Hct 31.6 L (42.0-52.0) % POC Hct (42-52) % MCV 91.1 (80.0-100.0) fL MCH 29.7 (25.0-34.0) pg MCHC 32.6 (32.0-36.0) g/dL RDW Std Deviation 45.1 (36.4-46.3) fL RDW Coeff of [place] 13.9 (11.5-14.5) % Plt Count 198 (130-400) K/uL MPV 9.9 (9.4-12.4) fL Immature Gran % (Auto) 0.5 % Neut % (Auto) 83.8 % Lymph % (Auto) 8.3 % [place] % (Auto) 5.7 % Eos % (Auto) 1.5 % Baso % (Auto) 0.2 % Neut # (Auto) 10.88 H (1.40-6.50) K/uL Lymph # (Auto) 1.07 L (1.20-3.40) K/uL [place] # (Auto) 0.74 H (0.11-0.59) K/uL Eos # (Auto) 0.19 (0.00-0.50) K/uL Baso # (Auto) 0.02 (0.00-0.20) K/uL Immature Gran # (Auto) 0.06 (0.01-0.20) K/uL POC Sodium (135-144) mmol/L Sodium 141 (136-145) mmol/L POC Potassium (3.3-5.0) mmol/L Potassium 3.9 (3.5-5.1) mmol/L POC Chloride (101-112) mmol/L Chloride 103 (98-107) mmol/L Carbon Dioxide 28 (21-32) mmol/L POC Total CO2 (24-31) mmol/L Anion Gap 10 (3-11) POC Anion Gap (16-25) mmol/L POC BUN (7-18) mg/dl BUN 23 (6-23) mg/dl Creatinine 1.01 (0.6-1.4) mg/dl POC Creatinine (0.6-1.3) mg/dl Est Cr Clr Drug Dosing 55.5 ml/min Est GFR ( Amer) 80.5 ml/min Est GFR (Non-Af Amer) 69.4 ml/min BUN/Creatinine Ratio 22.8 H (10-20) Glucose 154 H (70-99(Fasting)) mg/dl POC Glucose 157 H (70-99) mg/dl POC Glucose (other) (70-99) mg/dl Lactate 4.5 H* (0.4-2.0) mmol/L Calcium 8.5 L (8.6-10.3) mg/dl POC Ioniz Calcium [place] (1.12-1.32) mmol/l Magnesium 2.0 (1.7-2.4) mg/dl Total Bilirubin 0.5 (0.2-1.0) mg/dl Direct Bilirubin 0.1 (0-0.2) mg/dl AST 28 (13-39) U/L ALT 17 (7-52) U/L Alkaline Phosphatase 77 (34-104) U/L Troponin I High Sens 5.9 (0-20) pg/ml Total Protein 6.7 (6.0-8.3) gm/dl Albumin 3.2 L (3.4-5.0) gm/dl Procalcitonin 0.07 (0-0.5) ng/ml Urine Color Urine Appearance (Clear) Urine pH (4.5-7.5) Ur Specific [place] (1.000-1.030) Urine Protein (Negative) Urine Glucose (UA) (Negative) Urine Ketones (Negative) Urine Blood (Negative) Urine Nitrite (Negative) Urine Bilirubin (Negative) Urine Urobilinogen (Negative) Ur Leukocyte Esterase (Negative) Urine WBC (Auto) (0-5) /hpf Urine RBC (Auto) (0-2) /hpf U Hyaline Cast (Auto) (0-2) /lpf U Epithel Cells (Auto) (0-2) /hpf Urine Bacteria (Auto) (None Seen) Hyaline Casts (None Presnt) /lpf Granular Casts (None Prsent) /lpf 04/21/24 04/21/24 Range/Units 03:32 04:46 WBC (4.8-10.8) K/ul RBC (4.70-6.10) M/uL Hgb (14.0-18.0) g/dl POC Hgb 10.2 L (14.0-18.0) g/dl Hct (42.0-52.0) % POC Hct 30 L (42-52) % MCV (80.0-100.0) fL MCH (25.0-34.0) pg MCHC (32.0-36.0) g/dL RDW Std Deviation (36.4-46.3) fL RDW Coeff of [place] (11.5-14.5) % Plt Count (130-400) K/uL MPV (9.4-12.4) fL Immature Gran % (Auto) % Neut % (Auto) % Lymph % (Auto) % [place] % (Auto) % Eos % (Auto) % Baso % (Auto) % Neut # (Auto) (1.40-6.50) K/uL Lymph # (Auto) (1.20-3.40) K/uL [place] # (Auto) (0.11-0.59) K/uL Eos # (Auto) (0.00-0.50) K/uL Baso # (Auto) (0.00-0.20) K/uL Immature Gran # (Auto) (0.01-0.20) K/uL POC Sodium 142 (135-144) mmol/L Sodium (136-145) mmol/L POC Potassium 3.8 (3.3-5.0) mmol/L Potassium (3.5-5.1) mmol/L POC Chloride 102 (101-112) mmol/L Chloride (98-107) mmol/L Carbon Dioxide (21-32) mmol/L POC Total CO2 27 (24-31) mmol/L Anion Gap (3-11) POC Anion Gap 18.0 (16-25) mmol/L POC BUN 20 H (7-18) mg/dl BUN (6-23) mg/dl Creatinine (0.6-1.4) mg/dl POC Creatinine 1.1 (0.6-1.3) mg/dl Est Cr Clr Drug Dosing ml/min Est GFR ( Amer) ml/min Est GFR (Non-Af Amer) ml/min BUN/Creatinine Ratio (10-20) Glucose (70-99(Fasting)) mg/dl POC Glucose (70-99) mg/dl POC Glucose (other) 145 H (70-99) mg/dl Lactate (0.4-2.0) mmol/L Calcium (8.6-10.3) mg/dl POC Ioniz Calcium [place] 1.08 L (1.12-1.32) mmol/l Magnesium (1.7-2.4) mg/dl Total Bilirubin (0.2-1.0) mg/dl Direct Bilirubin (0-0.2) mg/dl AST (13-39) U/L ALT (7-52) U/L Alkaline Phosphatase (34-104) U/L Troponin I High Sens (0-20) pg/ml Total Protein (6.0-8.3) gm/dl Albumin (3.4-5.0) gm/dl Procalcitonin (0-0.5) ng/ml Urine Color Yellow Urine Appearance Clear (Clear) Urine pH 6.0 (4.5-7.5) Ur Specific [place] 1.031 H (1.000-1.030) Urine Protein Trace H (Negative) Urine Glucose (UA) Negative (Negative) Urine Ketones 1+ H (Negative) Urine Blood Negative (Negative) Urine Nitrite Negative (Negative) Urine Bilirubin Negative (Negative) Urine Urobilinogen Negative (Negative) Ur Leukocyte Esterase Trace H (Negative) Urine WBC (Auto) 0-5 (0-5) /hpf Urine RBC (Auto) 0-2 (0-2) /hpf U Hyaline Cast (Auto) 6-10 H (0-2) /lpf U Epithel Cells (Auto) 0-2 (0-2) /hpf Urine Bacteria (Auto) None Seen (None Seen) Hyaline Casts Present A (None Presnt) /lpf Granular Casts Present A (None Prsent) /lpf Administered Medications Vancomycin HCl 2,000 mg/ (Sodium Chloride) 540 mls @ 200 mls/hr IV NOW ONE Stop: 04/21/24 06:51 Last Admin: 04/21/24 06:01 Dose: 200 mls/hr Documented By: JADIEL Lactated Ringer's (Lr) 1,000 mls @ 80 mls/hr IV .[id number] ARSENIO Stop: 05/21/24 05:48 Last Admin: 04/21/24 06:03 Dose: 80 mls/hr Documented By: JADIEL Discontinued Medications Albuterol (Albut/Ipratrop 3mg/0.5mg Neb 3 Ml Vial) 3 ml NEB NOW STA; Protocol Stop: 04/21/24 02:45 Last Admin: 04/21/24 03:27 Dose: 3 ml Documented By: JADIEL Sodium Chloride (Nss) 1,000 mls @ 999 mls/hr IV .Q1H1M ONE Stop: 04/21/24 03:44 Last Infusion: 04/21/24 04:40 Dose: Infused Documented By: Admin: 04/21/24 03:27 Dose: 999 mls/hr Documented By: JADIEL Sodium Chloride (Nss) 1,000 mls @ 999 mls/hr IV .Q1H1M ONE Stop: 04/21/24 04:22 Last Infusion: 04/21/24 04:40 Dose: Infused Documented By: Admin: 04/21/24 03:32 Dose: 999 mls/hr Documented By: JADIEL Piperacillin Sod/Tazobactam Sod (Zosyn) 4.5 gm in 100 mls @ 200 mls/hr IV NOW ONE Stop: 04/21/24 04:18 Last Infusion: 04/21/24 05:18 Dose: Infused Documented By: Admin: 04/21/24 04:49 Dose: 200 mls/hr Documented By: DENIS Ioversol (Optiray 320 100ml) 100 ml IV ONCE ONE Stop: 04/21/24 04:11 Last Admin: 04/21/24 04:10 Dose: 91 ml Documented By: RILEY Lidocaine (Lidocaine 5% 1 Patch) 1 patch TD NOW STA Stop: 04/21/24 04:59 Last Admin: 04/21/24 05:09 Dose: 1 patch Documented By: JADIEL Lorazepam (Lorazepam 1 Mg/1 Ml Syr Ed Inj Use) 0.5 mg IV ONE STA Stop: 04/21/24 02:45 Last Admin: 04/21/24 03:26 Dose: 0.5 mg Documented By: JADIEL Imaging Data Radiologist's Impression: Abdomen/Pelvis CT 04/21/24 02:44 CR Exam(s): CT ABDOMEN + PELVIS With Contrast IV Amt: 91 ML OPTIRAY 320 EXAM: CT Chest, Abdomen and Pelvis With Intravenous Contrast CLINICAL HISTORY: Reason for exam: abdominal pain. TECHNIQUE: Axial computed tomography images of the chest, abdomen and pelvis with intravenous contrast. Automated exposure control was utilized for the study. A dose lowering technique was utilized adhering to the principles of ALARA. CONTRAST: Patient received 91 ML OPTIRAY 320 of IV contrast COMPARISON: No relevant prior studies available. FINDINGS: CHEST: Lungs: Partial collapse of the right lower lobe. No mass. No consolidation. Pleural space: Large right pleural effusion with dependent complex components. Please note this appears to have mediastinal extension. Small foci of air noted superiorly. Findings are favored to relate to large hemopneumothorax. Left pleural. Heart: Coronary artery calcifications. No cardiomegaly. No significant pericardial effusion. Mediastinum: Mediastinal shift to the left. ABDOMEN: Liver: Low attenuation foci in the liver some of which are due to cysts. Others are too small to characterize. Low attenuation foci in the liver which may be due to cysts but are too small to characterize. Gallbladder and bile ducts: Cholelithiasis. No gross findings to suggest cholecystitis. No ductal dilation. Pancreas: Unremarkable. No ductal dilation. No mass. Spleen: Unremarkable. No splenomegaly. Adrenals: Unremarkable. No mass. Kidneys and ureters: Unremarkable. No hydronephrosis. No solid mass. Stomach and bowel: No evidence of bowel obstruction. Partially visualized right fat and bowel containing inguinal hernia. No mucosal thickening. PELVIS: Appendix: No findings to suggest acute appendicitis. Bladder: Unremarkable. No mass. Reproductive: Prostatic calcifications with prostatomegaly. CHEST, ABDOMEN and PELVIS: Intraperitoneal space: Unremarkable. No significant fluid collection. No free air. Bones/joints: Acute fractures of the posterior right 8th-12th ribs at the costotransverse junctions. Acute fracture of the right posterior 9th and 10th ribs with displacement. Degenerative changes in the spine. No dislocation. Soft tissues: Umbilical hernia containing fat. Vasculature: Atherosclerotic disease. Lymph nodes: Unremarkable. No enlarged lymph nodes. IMPRESSION: 1. Large right pleural effusion with dependent complex components. Please note this appears to have mediastinal extension. Small foci of air noted superiorly. Findings are favored to relate to large hemopneumothorax. 2. Acute fractures of the posterior right 8th-12th ribs at the costotransverse junctions. 3. Acute fracture of the right posterior 9th and 10th ribs with displacement. 4. Partial collapse of the right lower lobe. 5. Mediastinal shift to the left. 6. No evidence of solid organ injury. Communications: Call Doctor Above results Electronically signed by: Cole Baez MD 04/21/24 04:[address] 04/21/24 02:44 Exam(s): CT C SPINE EXAM: CT Cervical Spine Without Intravenous Contrast CLINICAL HISTORY: Reason for exam: fall. TECHNIQUE: Axial computed tomography images of the cervical spine without intravenous contrast. Automated exposure control was utilized for the study. A dose lowering technique was utilized adhering to the principles of ALARA. COMPARISON: No relevant prior studies available. FINDINGS: Vertebrae: No evidence of acutely displaced fracture or dislocation within the cervical spine. Consider MRI if there is further concern. Degenerative changes in the cervical spine noted including loss of disc space height, osteophyte formation, uncovertebral hypertrophy, and facet arthropathy. Soft tissues: Unremarkable. Mastoid air cells: Right mastoid effusion. Left canal wall up mastoidectomy changes. Pleural space: Partially visualized large right pleural effusion. IMPRESSION: 1. No evidence of acutely displaced fracture or dislocation within the cervical spine. Consider MRI if there is further concern. 2. Partially visualized large right pleural effusion. 3. Degenerative changes. Electronically signed by: Cole Baez MD 04/21/24 04:[address] 04/21/24 02:44 CR Exam(s): CT HEAD Without Contrast EXAM: CT Head Without Intravenous Contrast CLINICAL HISTORY: Reason for exam: fall. TECHNIQUE: Axial computed tomography images of the head/brain without intravenous contrast. Automated exposure control was utilized for the study. A dose lowering technique was utilized adhering to the principles of ALARA. COMPARISON: CT Head dated feb 25 2024 FINDINGS: Brain: 4 mm left and 3 mm right cerebral convexity subdural hematomas. The right subdural hematoma appears to be isodense compared to the adjacent orellana matter in the left subdural hematoma appears to be hypodense compared to the adjacent orellana matter. These are unchanged from prior study February 25, 2024. Areas of decreased attenuation in the deep cerebral white matter are consistent with small vessel ischemic/degenerative changes. The cerebral and cerebellar sulci are prominent consistent with brain atrophy. Ventricles: Unremarkable. No ventriculomegaly. Bones/joints: Unremarkable. No acute fracture. Soft tissues: Unremarkable. Vasculature: Atherosclerotic disease. Sinuses: Unremarkable as visualized. Mastoid air cells: Right mastoid effusion. Left canal wall up mastoidectomy changes. Orbits: Bilateral lens replacements. IMPRESSION: 1. 4 mm left and 3 mm right cerebral convexity subdural hematomas. The right subdural hematoma appears to be isodense compared to the adjacent orellana matter in the left subdural hematoma appears to be hypodense compared to the adjacent orellana matter. These are unchanged from prior study February 25, 2024. 2. No other sites of intracranial hemorrhage identified. 3. Small vessel ischemic/degenerative changes. 4. Cerebral and cerebellar atrophy. Communications: Verify Receipt Electronically signed by: Cole Baez MD 04/21/24 04:[address] 04/21/24 03:48 Exam(s): CT CHEST With Contrast IV Amt: 91 ML OPTIRAY 320 EXAM: CT Chest, Abdomen and Pelvis With Intravenous Contrast CLINICAL HISTORY: Reason for exam: abdominal pain. TECHNIQUE: Axial computed tomography images of the chest, abdomen and pelvis with intravenous contrast. Automated exposure control was utilized for the study. A dose lowering technique was utilized adhering to the principles of ALARA. CONTRAST: Patient received 91 ML OPTIRAY 320 of IV contrast COMPARISON: No relevant prior studies available. FINDINGS: CHEST: Lungs: Partial collapse of the right lower lobe. No mass. No consolidation. Pleural space: Large right pleural effusion with dependent complex components. Please note this appears to have mediastinal extension. Small foci of air noted superiorly. Findings are favored to relate to large hemopneumothorax. Left pleural. Heart: Coronary artery calcifications. No cardiomegaly. No significant pericardial effusion. Mediastinum: Mediastinal shift to the left. ABDOMEN: Liver: Low attenuation foci in the liver some of which are due to cysts. Others are too small to characterize. Low attenuation foci in the liver which may be due to cysts but are too small to characterize. Gallbladder and bile ducts: Cholelithiasis. No gross findings to suggest cholecystitis. No ductal dilation. Pancreas: Unremarkable. No ductal dilation. No mass. Spleen: Unremarkable. No splenomegaly. Adrenals: Unremarkable. No mass. Kidneys and ureters: Unremarkable. No hydronephrosis. No solid mass. Stomach and bowel: No evidence of bowel obstruction. Partially visualized right fat and bowel containing inguinal hernia. No mucosal thickening. PELVIS: Appendix: No findings to suggest acute appendicitis. Bladder: Unremarkable. No mass. Reproductive: Prostatic calcifications with prostatomegaly. CHEST, ABDOMEN and PELVIS: Intraperitoneal space: Unremarkable. No significant fluid collection. No free air. Bones/joints: Acute fractures of the posterior right 8th-12th ribs at the costotransverse junctions. Acute fracture of the right posterior 9th and 10th ribs with displacement. Degenerative changes in the spine. No dislocation. Soft tissues: Umbilical hernia containing fat. Vasculature: Atherosclerotic disease. Lymph nodes: Unremarkable. No enlarged lymph nodes. IMPRESSION: 1. Large right pleural effusion with dependent complex components. Please note this appears to have mediastinal extension. Small foci of air noted superiorly. Findings are favored to relate to large hemopneumothorax. 2. Acute fractures of the posterior right 8th-12th ribs at the costotransverse junctions. 3. Acute fracture of the right posterior 9th and 10th ribs with displacement. 4. Partial collapse of the right lower lobe. 5. Mediastinal shift to the left. 6. No evidence of solid organ injury. Electronically signed by: Cole Baez MD 04/21/24 04:38 AM Discharge Plan Visit Data Chief Complaint: Fall Stated Complaint: FOUND NEXT TO BED, HYPOTENSIVE ED Provider: Michael Whipple Discharge Problem: Acute hypoxemic respiratory failure, Multiple rib fractures, History of subdural hematoma, Frequent falls, Hemopneumothorax on right Patient Disposition: Admitted As Inpatient Discharge Instructions Interventions: ED Discharge Assessment Last Done: 04/21/24 05:38 Discharge Problem: Multiple rib fractures Qualifiers: Encounter type: initial encounter Fracture type: closed Laterality: right Q ualified Code(s): S22.41XA - Multiple fractures of ribs, right side, initial encounter for closed fracture
[2024-04-21 03:11] VITALS: TEMP 95.5
[2024-04-21] MEDS: LORazepam 1 MG/1 ML SYR ED Inj Use IV STA (03:26)
[2024-04-21] MEDS: SODIUM CHLORIDE 0.9% 1,000 ML IV ONE ×2 (03:27→03:32)
[2024-04-21] MEDS: ALBUT/IPRATROP 3MG/0.5MG NEB 3 ML VIAL NEB STA (03:27)
[2024-04-21 03:45] LABS: iSTAT Creatinine 1.1 mg/dl (0.6-1.3); iSTAT Hemoglobin 10.2 g/dl (14.0-18.0); iSTAT Ionized Calcium 1.08 mmol/l (1.12-1.32); iSTAT Potassium 3.8 mmol/L (3.3-5.0)
[2024-04-21 03:46] LABS: Albumin Level 3.2 gm/dl (3.4-5.0); BUN Creatinine Ratio 22.8 (10-20); Bilirubin Direct 0.1 mg/dl (0-0.2); Bilirubin,Total 0.5 mg/dl (0.2-1.0); Calcium 8.5 mg/dl (8.6-10.3); Creatinine Clr Calc Pharmacy 55.5 ml/min; Est GFR (African American) 80.5 ml/min; Est GFR (Non-African American) 69.4 ml/min; Potassium 3.9 mmol/L (3.5-5.1); Total Protein 6.7 gm/dl (6.0-8.3)
[2024-04-21 03:52] LABS: Troponin I High Sensitivity 5.9 pg/ml (0-20)
[2024-04-21 04:01] LABS: Basophils # (auto) 0.02 K/uL (0.00-0.20); Basophils % (auto) 0.2 %; Eosinophils # (auto) 0.19 K/uL (0.00-0.50); Eosinophils % (auto) 1.5 %; Hematocrit (blood only) 31.6 % (42.0-52.0); Hemoglobin 10.3 g/dl (14.0-18.0); Immature Granulocytes # (auto) 0.06 K/uL (0.01-0.20); Immature Granulocytes % (auto) 0.5 %; Lymphocytes # (auto) 1.07 K/uL (1.20-3.40); Lymphocytes % (auto) 8.3 %; Mean Corpuscular Hemoglobin 29.7 pg (25.0-34.0); Mean Corpuscular Hgb Conc 32.6 g/dL (32.0-36.0); Mean Corpuscular Volume 91.1 fL (80.0-100.0); Mean Platelet Volume 9.9 fL (9.4-12.4); Monocytes # (auto) 0.74 K/uL (0.11-0.59); Monocytes % (auto) 5.7 %; Neutrophils # (auto) 10.88 K/uL (1.40-6.50); Neutrophils % (auto) 83.8 %; Platelet Count 198 K/uL (130-400); RDW Coefficient of Variation 13.9 % (11.5-14.5); RDW Standard Deviation 45.1 fL (36.4-46.3); Red Blood Count 3.47 M/uL (4.70-6.10); White Blood Count 12.96 K/ul (4.8-10.8)
[2024-04-21] MEDS: OPTIRAY 320 100ml IV ONE (04:10)
[2024-04-21] MEDS ORDERED: VANCOMYCIN CONSULT ACTIVE PRN (04:10)
--- NOTE | 2024-04-21 04:31 | CT Scan Report ---
Exam(s): CT C SPINE EXAM: CT Cervical Spine Without Intravenous Contrast CLINICAL HISTORY: Reason for exam: fall. TECHNIQUE: Axial computed tomography images of the cervical spine without intravenous contrast. Automated exposure control was utilized for the study. A dose lowering technique was utilized adhering to the principles of ALARA. COMPARISON: No relevant prior studies available. FINDINGS: Vertebrae: No evidence of acutely displaced fracture or dislocation within the cervical spine. Consider MRI if there is further concern. Degenerative changes in the cervical spine noted including loss of disc space height, osteophyte formation, uncovertebral hypertrophy, and facet arthropathy. Soft tissues: Unremarkable. Mastoid air cells: Right mastoid effusion. Left canal wall up mastoidectomy changes. Pleural space: Partially visualized large right pleural effusion. IMPRESSION: 1. No evidence of acutely displaced fracture or dislocation within the cervical spine. Consider MRI if there is further concern. 2. Partially visualized large right pleural effusion. 3. Degenerative changes. Electronically signed by: Cole Baez MD 04/21/24 04:30 AM
--- NOTE | 2024-04-21 04:33 | CT Scan Report ---
Exam(s): CT HEAD Without Contrast EXAM: CT Head Without Intravenous Contrast CLINICAL HISTORY: Reason for exam: fall. TECHNIQUE: Axial computed tomography images of the head/brain without intravenous contrast. Automated exposure control was utilized for the study. A dose lowering technique was utilized adhering to the principles of ALARA. COMPARISON: CT Head dated feb 25 2024 FINDINGS: Brain: 4 mm left and 3 mm right cerebral convexity subdural hematomas. The right subdural hematoma appears to be isodense compared to the adjacent orellana matter in the left subdural hematoma appears to be hypodense compared to the adjacent orellana matter. These are unchanged from prior study February 25, 2024. Areas of decreased attenuation in the deep cerebral white matter are consistent with small vessel ischemic/degenerative changes. The cerebral and cerebellar sulci are prominent consistent with brain atrophy. Ventricles: Unremarkable. No ventriculomegaly. Bones/joints: Unremarkable. No acute fracture. Soft tissues: Unremarkable. Vasculature: Atherosclerotic disease. Sinuses: Unremarkable as visualized. Mastoid air cells: Right mastoid effusion. Left canal wall up mastoidectomy changes. Orbits: Bilateral lens replacements. IMPRESSION: 1. 4 mm left and 3 mm right cerebral convexity subdural hematomas. The right subdural hematoma appears to be isodense compared to the adjacent orellana matter in the left subdural hematoma appears to be hypodense compared to the adjacent orellana matter. These are unchanged from prior study February 25, 2024. 2. No other sites of intracranial hemorrhage identified. 3. Small vessel ischemic/degenerative changes. 4. Cerebral and cerebellar atrophy. Communications: Verify Receipt Electronically signed by: Cole Baez MD 04/21/24 04:33 AM
--- NOTE | 2024-04-21 04:39 | CT Scan Report ---
Exam(s): CT ABDOMEN + PELVIS With Contrast IV Amt: 91 ML OPTIRAY 320 EXAM: CT Chest, Abdomen and Pelvis With Intravenous Contrast CLINICAL HISTORY: Reason for exam: abdominal pain. TECHNIQUE: Axial computed tomography images of the chest, abdomen and pelvis with intravenous contrast. Automated exposure control was utilized for the study. A dose lowering technique was utilized adhering to the principles of ALARA. CONTRAST: Patient received 91 ML OPTIRAY 320 of IV contrast COMPARISON: No relevant prior studies available. FINDINGS: CHEST: Lungs: Partial collapse of the right lower lobe. No mass. No consolidation. Pleural space: Large right pleural effusion with dependent complex components. Please note this appears to have mediastinal extension. Small foci of air noted superiorly. Findings are favored to relate to large hemopneumothorax. Left pleural. Heart: Coronary artery calcifications. No cardiomegaly. No significant pericardial effusion. Mediastinum: Mediastinal shift to the left. ABDOMEN: Liver: Low attenuation foci in the liver some of which are due to cysts. Others are too small to characterize. Low attenuation foci in the liver which may be due to cysts but are too small to characterize. Gallbladder and bile ducts: Cholelithiasis. No gross findings to suggest cholecystitis. No ductal dilation. Pancreas: Unremarkable. No ductal dilation. No mass. Spleen: Unremarkable. No splenomegaly. Adrenals: Unremarkable. No mass. Kidneys and ureters: Unremarkable. No hydronephrosis. No solid mass. Stomach and bowel: No evidence of bowel obstruction. Partially visualized right fat and bowel containing inguinal hernia. No mucosal thickening. PELVIS: Appendix: No findings to suggest acute appendicitis. Bladder: Unremarkable. No mass. Reproductive: Prostatic calcifications with prostatomegaly. CHEST, ABDOMEN and PELVIS: Intraperitoneal space: Unremarkable. No significant fluid collection. No free air. Bones/joints: Acute fractures of the posterior right 8th-12th ribs at the costotransverse junctions. Acute fracture of the right posterior 9th and 10th ribs with displacement. Degenerative changes in the spine. No dislocation. Soft tissues: Umbilical hernia containing fat. Vasculature: Atherosclerotic disease. Lymph nodes: Unremarkable. No enlarged lymph nodes. IMPRESSION: 1. Large right pleural effusion with dependent complex components. Please note this appears to have mediastinal extension. Small foci of air noted superiorly. Findings are favored to relate to large hemopneumothorax. 2. Acute fractures of the posterior right 8th-12th ribs at the costotransverse junctions. 3. Acute fracture of the right posterior 9th and 10th ribs with displacement. 4. Partial collapse of the right lower lobe. 5. Mediastinal shift to the left. 6. No evidence of solid organ injury. Communications: Call Doctor Above results Electronically signed by: Cole Baez MD 04/21/24 04:38 AM
[2024-04-21] MEDS: PIPERACILLIN/TAZOBACTAM 4.5 GM/100 ML BAG IV ONE (04:49)
--- NOTE | 2024-04-21 05:08 | History & Physical Report ---
Date of Service April 21, 2024 Assessment & Plan (1) Multiple rib fractures: Plan: Patient is a 83-year-old male who presents to the hospital from [facility] due to an unwitnessed fall. Patient has been having multiple falls and recently had a rib fracture seen on x-ray at the facility? Presented to the ED covered in feces, having frequent stools. At time of admission completing obtunded requiring 3 L nasal cannula. -Patient with baseline severe dementia. Frequent falls. -Chest CT showed a large right pleural effusion with possible large hemopneumothorax. -Acute rib fractures in the posterior right 812 ribs, right posterior 912 ribs with displacement -Partial collapse of the right lower lobe with mediastinal shift to the left -ED provider talked to the of the patient. -Patient is DNR. Has been having multiple falls. Possible rib fracture occurred a couple days ago at [facility] [employer], no images in [facility]. - wants no aggressive measures taken. -Please refer to ED note regarding further communication with . -Palliative care consulted, appreciate recommendations. Will hold off on further workup/imaging. -Morphine as needed for pain as well as Lidoderm. -Will monitor on telemetry, may be able to transfer once goals of care are established. (2) Frequent falls: Plan: - as above. (3) Loose stools: Plan: -Elevated lactate of 4.5, slight leukocytosis and a hemoglobin of 10.3. -MRSA swab collected. -Started on vancomycin and Zosyn IV. Will continue at time of admission. -C. difficile pending collection. -IV fluids given in the ED, will continue on admission. (4) History of subdural hematoma: Plan: -Head CT showed a 4 mm left and 3 mm right cerebral subdural hematomas that are unchanged from prior study done on February 25, 2024 (5) Dementia with behavioral disturbance: Plan: -Patient with a history of severe dementia and unable to answer majority of questions. -Will hold home meds until able to have goals of care discussion with . Plan Fluids: LR at 80 mL an hour Nutrition: N.p.o. Code status: DNR/DNI DVT ppx: None] Consults: Palliative care PT/OT: Will hold off until discussion with palliative. Dispo: PCU/telemetry, may de-escalate after palliative care talks. History of Present Illness Chief Complaint: pain control, rib frx's Primary Care Provider: Betina Ballard MD Patient is a 83-year-old male who [facility] due to an unwitnessed fall. Patient was found laying by his bed. Patient has baseline dementia but was more confused after the fall. He did return slightly to his baseline prior to leaving. He is unable to answer any questions, which apparently is his baseline. He has been having frequent falls, not on any blood thinners. Patient reportedly had a fall in the last 3 days which resulted in rib fractures that was seen on x-ray. X-ray currently not in our system. Patient was also covered in feces at time of arrival. Patient reportedly has been having some loose stools. Patient is reportedly a DNR. Patient does have a history of a subdural hematoma. In the ED: CMP overall benign, CBC with a slight leukocytosis and a hemoglobin of 10.3. Lactate of 4.5. UA with hyaline and granular casts as well as +[address] showed a 4 mm left and 3 mm right cerebral subdural hematomas that are unchanged from prior study done on February 25, 2024. No other acute sites of intracranial hemorrhage. Chest CT showed a large right pleural effusion, with possibility of a large hemopneumothorax. Acute fractures of the posterior right [id number] ribs, acute fractures of the right posterior 9 through 12 ribs with displacement. Partial collapse of the right lower lobe with a mediastinal shift to the left Allergies Allergy/AdvReac Type Severity Reaction Status Date / Time No Known Allergies Allergy Verified 04/21/24 02:39 Home Medications Medication Instructions Recorded Confirmed Type acetaminophen 325 mg tablet 650 mg PO BID 02/25/24 04/21/24 History acetaminophen 325 mg tablet 650 mg PO Q6H PRN Fever Or Pain 02/25/24 04/21/24 History bisacodyl 10 mg rectal suppository 10 mg RI DAILY PRN Constipation 02/25/24 04/21/24 History (Dulcolax (bisacodyl)) divalproex 125 mg capsule,delayed 250 mg PO BID 02/25/24 04/21/24 History release sprinkle (Depakote Sprinkles) magnesium hydroxide 400 mg/5 mL See Rx Instructions .Route 02/25/24 04/21/24 History oral suspension (Milk of Magnesia) .COMPLEX PRN Constipation omeprazole 20 mg capsule,delayed 20 mg PO QAM 02/25/24 04/21/24 History release polyethylene glycol 3350 17 gram 17 g PO QAM 02/25/24 04/21/24 History oral powder packet (Miralax) sodium phosphates 19 gram-7 118 ml RI DAILY PRN Constipation 02/25/24 04/21/24 History gram/118 mL enema (Fleet Enema) vit C 250 mg-E 90 mg-zinc 40 1 tab PO BID 02/25/24 04/21/24 History mg-copper 1 [id number] chew tablet (PreserVision AREDS-2) lidocaine 4 % topical patch 2 patch topical DAILY 04/21/24 04/21/24 History olanzapine 5 mg tablet 5 mg PO HS 04/21/24 04/21/24 History tramadol 50 mg tablet 50 mg PO Q6H PRN Severe Pain 04/21/24 04/21/24 History (Scale Score 7-10) Past Med/Surg History Problem List (Updated 04/21/24 @ 06:56 by Michael Whipple MD) Hemopneumothorax on right (Acute) Acute hypoxemic respiratory failure (Acute) Loose stools Frequent falls (Acute) Multiple rib fractures (Acute) History of subdural hematoma (Acute) Dementia with behavioral disturbance (Acute) Medical History Episode of unresponsiveness BPH (benign prostatic hyperplasia) Dementia SDH (subdural hematoma) Surgical History H/O inguinal hernia repair Family History Other Family history unobtainable Social History Smoking Status: Unknown if ever smoked Tobacco Type: Cigarettes Preferred Language: Icelandic Communication Ability: Unable Wharf Worker Required: No Beliefs That Will Affect Care: None marital status: Current Living Situation: Custodial Current Living Situation Comment: Pt confused and disoriented. Poor historian. Feels Safe at Home: Yes Assistive Devices: None Review of Systems Review of Systems: Unobtainable due to reduced consciousness Physical Exam Physical Exam: GENERAL: ill in appearance, obtunded EYE EXAM: Normal conjunctiva. PERRL OROPHARYNX: Dry mucus membranes, grossly normal dentition. NECK: Trachea midline, no stridor. LUNGS: Decreased breath sounds on the right, clear to auscultation on the left, HEART: Tachycardic and regular, no MRG. ABDOMEN: Abdomen soft, diffuse abdominal pain, no masses, no rebound or guarding. UPPER EXTREMITIES: Upper extremities are grossly normal. LOWER EXTREMITIES: Likely aged bruising to the left knee no obvious deformity noted leg length discrepancy. No TTP to the hip knee or ankles. NEURO EXAM: Obtunded Results & Data Results & Data Vital Signs (Past 12 Hours) Vital Signs Temp Pulse Resp BP Pulse Ox O2 Del Method O2 Flow Rate 04/21/24 04:57 98 Nasal Cannula 2 04/21/24 04:45 90 14 100 Nasal Cannula 4 04/21/24 04:31 94/61 L 04/21/24 04:31 94/61 L 04/21/24 04:31 94/61 L 04/21/24 04:16 98/80 L 04/21/24 04:16 98/80 L 04/21/24 04:03 92 H 18 88 L 04/21/24 04:02 84/66 L 04/21/24 04:02 84/66 L 04/21/24 03:39 91 04/21/24 03:30 87 18 97 04/21/24 03:30 91/57 L 04/21/24 03:30 91/57 L 04/21/24 03:30 91/57 L 04/21/24 03:24 91 H 14 98 04/21/24 03:00 99/56 L 04/21/24 03:00 99/56 L 04/21/24 03:00 99 H 22 93 04/21/24 02:54 100 H 23 91 04/21/24 02:54 93/60 L 04/21/24 02:54 93/60 L 04/21/24 02:54 93/60 L 04/21/24 02:51 108 H 04/21/24 02:44 93 Free Flow/Blow-by 04/21/24 02:27 35.3 C L 105 H 24 99/56 L 93 Free Flow/Blow-by Supervising Physician Co-Signing Physician Notes Attending addendum: I have physically seen this patient, have supervised the medical residents activities, and agree with the H&P unless as otherwise noted. Assessment and Plan: Multiple rib fractures/frequent falls- Secondary to unwitnessed fall at [facility] Associated large right pleural effusion possible large hemopneumothorax Acute rib fractures: Posterior right 8-12 ribs, right posterior 9-12 ribs with minimal displacement Partial collapse right lower lobe with mediastinal shift to the left contacted, reports that patient is DNR, and wants no aggressive measures taken Palliative care consult Lidoderm patch topically Morphine for pain as noted Contributing factors including not limited to: Severe dementia, loose stools Loose stools- Stool PCR studies pending C. difficile pending Was given vancomycin IV and Zosyn IV from the ED, will hold any further antibiotics until results of studies Dementia with behavioral disturbance- Patient with severe dementia, leading to frequent falls, Medications on hold until discussion as noted
[2024-04-21] MEDS: LIDOCAINE 5% 1 PATCH TD STA (05:09)
[2024-04-21 05:43] LABS: Appearance Urine Clear (Clear); Bacteria Urine Automated None Seen (None Seen); Bilirubin Urine Negative (Negative); Blood Urine Negative (Negative); Color Urine Yellow; Epithelial Cell Urine Auto 0-2 /hpf (0-2); Glucose Urine UA Negative (Negative); Granular Casts Urine Present /lpf (None Prsent); Hyaline Casts Urine Present /lpf (None Presnt); Ketones Urine 1+ (Negative); Leukocyte Esterase Urine Trace (Negative); Nitrite Urine Negative (Negative); Protein Urine Trace (Negative); RBC Urine Automated 0-2 /hpf (0-2); Specific Gravity Urine 1.031 (1.000-1.030); Urobilinogen Urine Negative (Negative); WBC Urine Automated 0-5 /hpf (0-5)
[2024-04-21] MEDS ORDERED: MoRPHine SULFATE 4 MG/ML 1 ML CARP\\VIAL IV PRN (05:49)
[2024-04-21] MEDS ORDERED: MoRPHine SULFATE 2 MG/ML CARP IV PRN (05:49)
[2024-04-21] MEDS: VANCOMYCIN HCL 2,000 MG in SODIUM CHLORIDE 0.9% 500 ML IV ONE (06:01)
[2024-04-21] MEDS: LACTATED RINGER'S 1,000 ML IV SCH (06:03)
--- NOTE | 2024-04-21 07:47 | XRay Report ---
XR chest 1V portable CLINICAL HISTORY: Sepsis TECHNIQUE: Single frontal radiograph of the chest was obtained. Comparison: Comparison is made to chest radiograph 02/25/2024 FINDINGS: No lines and tubes are seen. Calcified aortic knob is seen. Right-sided pleural effusion is seen with underlying airspace opacities. Prominent line projecting over the left chest wall represents a skin fold. IMPRESSION: Interval development of a moderate right pleural effusion with underlying atelectasis. Superimposed a spiration/pneumonia cannot be excluded. ACT 112: Negative or not required by law. Electronically signed by: Miguel Goldstein M.D. 04/21/2024 7:45 AM
[2024-04-21] MEDS: PIPERACILLIN/TAZOBACTAM 4.5 GM in DEXTROSE 5% MINI-B 100 ML IV SCH (10:09)
--- NOTE | 2024-04-21 10:13 | Electrocardiogram Report ---
Test Reason : Blood Pressure : / mmHG Vent. Rate : 103 BPM Atrial Rate : 103 BPM P-R Int : 136 ms QRS Dur : 088 ms QT Int : 352 ms P-R-T Axes : 010 027 046 degrees QTc Int : 461 ms Sinus tachycardia Otherwise normal ECG When compared with ECG of 22-NOV-2022 19:29, T wave amplitude has increased in Anterolateral leads Confirmed by Noam Suresh ([id number]) on 04/21/2024 10:12:36 AM Referred By: [facility] Confirmed By:Noam Suresh
[2024-04-21] MEDS ORDERED: GLYCOPYRROLATE 0.2 MG/ML VIAL IV PRN (13:17)
[2024-04-21] MEDS: HYDROmorphone INJ 0.5 MG/0.5 ML SYR IV PRN (17:54)
[2024-04-21] MEDS: LORazepam 0.5 MG in SYRINGE 0.25 ML IV PRN (17:55)
[2024-04-21 19:22] VITALS: BP 101/64; PULSE 74; RESP 16; O2SAT 94
--- NOTE | 2024-04-22 03:55 | Billing Data ---
Date of Service April 22, 2024 Coding Level of Care Code 98028 INT INP/OBS CARE
--- NOTE | 2024-04-22 09:56 | Palliative Care Consultation ---
Date of Consultation April 22, 2024 Assessment & Plan (1) Rib pain: (2) Agitation due to dementia: (3) Agitation: (4) Frequent falls: (5) Weakness generalized: (6) Dementia with behavioral disturbance: (7) Palliative care by specialist: (8) Need for comfort care: Plan Dilaudid 0.8mg and Dialudid 1mg IV prn options added for pain and air hunger relief Ativan IV increased to 1mg prn Zyprexa 5mg IM BID until agitation is better controlled Haldol 5mg PO q6h prn, can crush in pudding or use Haldol Intensol liquid I called yesterday, LMVM/no call back I called sister Lesley as she requested to speak with me, called this AM and Lesley advised I need to speak with Mrs Gaitan and daughter Kaila. Advised I LMVM for her yesterday. Per Lesley, will be here sometime this AM and asked me to speak with them however I am in OP clinic today and off tomorrow. I offered to call during my lunch break t answer questions and also advised if the concerns are re hospice logistics and dc planning then those questions go to care mgt but if there are clinical mgt/end of life care concerns I can assist. Lesley states family would like pt to stay in the hospital until he dies however it is noted he is not acutely/imminently dying and therefore chronically ill, which necessitates dc back to chronic care level at SNF. Updated nursing and primary team Comfort orders written Thank you for allowing us to participate in the ongoing care of this patient. Please page with any additional concerns. Linetet Crawford DNP Director, Palliative Medicine History of Present Illness Reason for Consultation: end of life care Attending Physician: Tina Isabel MD History of Present Illness comfort care adv dementia centre care resident multiple falls new rib fx very agitated PMH and HPI per chart review discussed with primary team Allergies Allergy/AdvReac Type Severity Reaction Status Date / Time No Known Allergies Allergy Verified 04/21/24 02:39 Home Medications Medication Instructions Recorded Confirmed Type acetaminophen 325 mg tablet 650 mg PO BID 02/25/24 04/21/24 History acetaminophen 325 mg tablet 650 mg PO Q6H PRN Fever Or Pain 02/25/24 04/21/24 History bisacodyl 10 mg rectal suppository 10 mg NC DAILY PRN Constipation 02/25/24 04/21/24 History (Dulcolax (bisacodyl)) divalproex 125 mg capsule,delayed 250 mg PO BID 02/25/24 04/21/24 History release sprinkle (Depakote Sprinkles) magnesium hydroxide 400 mg/5 mL See Rx Instructions .Route 02/25/24 04/21/24 History oral suspension (Milk of Magnesia) .COMPLEX PRN Constipation omeprazole 20 mg capsule,delayed 20 mg PO QAM 02/25/24 04/21/24 History release polyethylene glycol 3350 17 gram 17 g PO QAM 02/25/24 04/21/24 History oral powder packet (Miralax) sodium phosphates 19 gram-7 118 ml NC DAILY PRN Constipation 02/25/24 04/21/24 History gram/118 mL enema (Fleet Enema) vit C 250 mg-E 90 mg-zinc 40 1 tab PO BID 02/25/24 04/21/24 History mg-copper 1 [id number] chew tablet (PreserVision AREDS-2) lidocaine 4 % topical patch 2 patch topical DAILY 04/21/24 04/21/24 History olanzapine 5 mg tablet 5 mg PO HS 04/21/24 04/21/24 History tramadol 50 mg tablet 50 mg PO Q6H PRN Severe Pain 04/21/24 04/21/24 History (Scale Score 7-10) Patient History Medical History Episode of unresponsiveness BPH (benign prostatic hyperplasia) Dementia SDH (subdural hematoma) Surgical History H/O inguinal hernia repair Family History Other Family history unobtainable Social History Smoking Status: Unknown if ever smoked Tobacco Type: Cigarettes Preferred Language: Cymro Communication Ability: Unable Global Account Executive Required: No Beliefs That Will Affect Care: None marital status: Current Living Situation: Custodial Current Living Situation Comment: Pt confused and disoriented. Poor historian. Feels Safe at Home: Yes Assistive Devices: None Review of Systems Review of Systems: Unobtainable due to cognitive status Physical Exam Physical Exam: deferred/agitated Results & Data Laboratory Results 04/21/24 04/21/24 04/21/24 Range/Units 06:38 05:57 04:46 WBC (4.8-10.8) K/ul RBC (4.70-6.10) M/uL Hgb (14.0-18.0) g/dl POC Hgb (14.0-18.0) g/dl Hct (42.0-52.0) % POC Hct (42-52) % MCV (80.0-100.0) fL MCH (25.0-34.0) pg MCHC (32.0-36.0) g/dL RDW Std Deviation (36.4-46.3) fL RDW Coeff of [place] (11.5-14.5) % Plt Count (130-400) K/uL MPV (9.4-12.4) fL Immature Gran % (Auto) % Neut % (Auto) % Lymph % (Auto) % [place] % (Auto) % Eos % (Auto) % Baso % (Auto) % Neut # (Auto) (1.40-6.50) K/uL Lymph # (Auto) (1.20-3.40) K/uL [place] # (Auto) (0.11-0.59) K/uL Eos # (Auto) (0.00-0.50) K/uL Baso # (Auto) (0.00-0.20) K/uL Immature Gran # (Auto) (0.01-0.20) K/uL POC Sodium (135-144) mmol/L Sodium (136-145) mmol/L POC Potassium (3.3-5.0) mmol/L Potassium (3.5-5.1) mmol/L POC Chloride (101-112) mmol/L Chloride (98-107) mmol/L Carbon Dioxide (21-32) mmol/L POC Total CO2 (24-31) mmol/L Anion Gap (3-11) POC Anion Gap (16-25) mmol/L POC BUN (7-18) mg/dl BUN (6-23) mg/dl Creatinine (0.6-1.4) mg/dl POC Creatinine (0.6-1.3) mg/dl Est Cr Clr Drug Dosing ml/min Est GFR ( Amer) ml/min Est GFR (Non-Af Amer) ml/min BUN/Creatinine Ratio (10-20) Glucose (70-99(Fasting)) mg/dl POC Glucose (70-99) mg/dl POC Glucose (other) (70-99) mg/dl Lactate 1.1 (0.4-2.0) mmol/L Calcium (8.6-10.3) mg/dl POC Ioniz Calcium Topher (1.12-1.32) mmol/l Magnesium (1.7-2.4) mg/dl Total Bilirubin (0.2-1.0) mg/dl Direct Bilirubin (0-0.2) mg/dl AST (13-39) U/L ALT (7-52) U/L Alkaline Phosphatase (34-104) U/L Troponin I High Sens (0-20) pg/ml Total Protein (6.0-8.3) gm/dl Albumin (3.4-5.0) gm/dl Procalcitonin (0-0.5) ng/ml Urine Color Yellow Urine Appearance Clear (Clear) Urine pH 6.0 (4.5-7.5) Ur Specific [place] 1.031 H (1.000-1.030) Urine Protein Trace H (Negative) Urine Glucose (UA) Negative (Negative) Urine Ketones 1+ H (Negative) Urine Blood Negative (Negative) Urine Nitrite Negative (Negative) Urine Bilirubin Negative (Negative) Urine Urobilinogen Negative (Negative) Ur Leukocyte Esterase Trace H (Negative) Urine WBC (Auto) 0-5 (0-5) /hpf Urine RBC (Auto) 0-2 (0-2) /hpf U Hyaline Cast (Auto) 6-10 H (0-2) /lpf U Epithel Cells (Auto) 0-2 (0-2) /hpf Urine Bacteria (Auto) None Seen (None Seen) Hyaline Casts Present A (None Presnt) /lpf Granular Casts Present A (None Prsent) /lpf Nasal Screen MRSA (PCR) Negative (Negative) 04/21/24 04/21/24 04/21/24 Range/Units 03:32 03:25 03:12 WBC 12.96 H (4.8-10.8) K/ul RBC 3.47 L (4.70-6.10) M/uL Hgb 10.3 L (14.0-18.0) g/dl POC Hgb 10.2 L (14.0-18.0) g/dl Hct 31.6 L (42.0-52.0) % POC Hct 30 L (42-52) % MCV 91.1 (80.0-100.0) fL MCH 29.7 (25.0-34.0) pg MCHC 32.6 (32.0-36.0) g/dL RDW Std Deviation 45.1 (36.4-46.3) fL RDW Coeff of [place] 13.9 (11.5-14.5) % Plt Count 198 (130-400) K/uL MPV 9.9 (9.4-12.4) fL Immature Gran % (Auto) 0.5 % Neut % (Auto) 83.8 % Lymph % (Auto) 8.3 % [place] % (Auto) 5.7 % Eos % (Auto) 1.5 % Baso % (Auto) 0.2 % Neut # (Auto) 10.88 H (1.40-6.50) K/uL Lymph # (Auto) 1.07 L (1.20-3.40) K/uL [place] # (Auto) 0.74 H (0.11-0.59) K/uL Eos # (Auto) 0.19 (0.00-0.50) K/uL Baso # (Auto) 0.02 (0.00-0.20) K/uL Immature Gran # (Auto) 0.06 (0.01-0.20) K/uL POC Sodium 142 (135-144) mmol/L Sodium 141 (136-145) mmol/L POC Potassium 3.8 (3.3-5.0) mmol/L Potassium 3.9 (3.5-5.1) mmol/L POC Chloride 102 (101-112) mmol/L Chloride 103 (98-107) mmol/L Carbon Dioxide 28 (21-32) mmol/L POC Total CO2 27 (24-31) mmol/L Anion Gap 10 (3-11) POC Anion Gap 18.0 (16-25) mmol/L POC BUN 20 H (7-18) mg/dl BUN 23 (6-23) mg/dl Creatinine 1.01 (0.6-1.4) mg/dl POC Creatinine 1.1 (0.6-1.3) mg/dl Est Cr Clr Drug Dosing 55.5 ml/min Est GFR ( Amer) 80.5 ml/min Est GFR (Non-Af Amer) 69.4 ml/min BUN/Creatinine Ratio 22.8 H (10-20) Glucose 154 H (70-99(Fasting)) mg/dl POC Glucose (70-99) mg/dl POC Glucose (other) 145 H (70-99) mg/dl Lactate 4.5 H* (0.4-2.0) mmol/L Calcium 8.5 L (8.6-10.3) mg/dl POC Ioniz Calcium [place] 1.08 L (1.12-1.32) mmol/l Magnesium 2.0 (1.7-2.4) mg/dl Total Bilirubin 0.5 (0.2-1.0) mg/dl Direct Bilirubin 0.1 (0-0.2) mg/dl AST 28 (13-39) U/L ALT 17 (7-52) U/L Alkaline Phosphatase 77 (34-104) U/L Troponin I High Sens 5.9 (0-20) pg/ml Total Protein 6.7 (6.0-8.3) gm/dl Albumin 3.2 L (3.4-5.0) gm/dl Procalcitonin 0.07 (0-0.5) ng/ml Urine Color Urine Appearance (Clear) Urine pH (4.5-7.5) Ur Specific [place] (1.000-1.030) Urine Protein (Negative) Urine Glucose (UA) (Negative) Urine Ketones (Negative) Urine Blood (Negative) Urine Nitrite (Negative) Urine Bilirubin (Negative) Urine Urobilinogen (Negative) Ur Leukocyte Esterase (Negative) Urine WBC (Auto) (0-5) /hpf Urine RBC (Auto) (0-2) /hpf U Hyaline Cast (Auto) (0-2) /lpf U Epithel Cells (Auto) (0-2) /hpf Urine Bacteria (Auto) (None Seen) Hyaline Casts (None Presnt) /lpf Granular Casts (None Prsent) /lpf Nasal Screen MRSA (PCR) (Negative) 04/21/24 Range/Units 02:55 WBC (4.8-10.8) K/ul RBC (4.70-6.10) M/uL Hgb (14.0-18.0) g/dl POC Hgb (14.0-18.0) g/dl Hct (42.0-52.0) % POC Hct (42-52) % MCV (80.0-100.0) fL MCH (25.0-34.0) pg MCHC (32.0-36.0) g/dL RDW Std Deviation (36.4-46.3) fL RDW Coeff of [place] (11.5-14.5) % Plt Count (130-400) K/uL MPV (9.4-12.4) fL Immature Gran % (Auto) % Neut % (Auto) % Lymph % (Auto) % [place] % (Auto) % Eos % (Auto) % Baso % (Auto) % Neut # (Auto) (1.40-6.50) K/uL Lymph # (Auto) (1.20-3.40) K/uL [place] # (Auto) (0.11-0.59) K/uL Eos # (Auto) (0.00-0.50) K/uL Baso # (Auto) (0.00-0.20) K/uL Immature Gran # (Auto) (0.01-0.20) K/uL POC Sodium (135-144) mmol/L Sodium (136-145) mmol/L POC Potassium (3.3-5.0) mmol/L Potassium (3.5-5.1) mmol/L POC Chloride (101-112) mmol/L Chloride (98-107) mmol/L Carbon Dioxide (21-32) mmol/L POC Total CO2 (24-31) mmol/L Anion Gap (3-11) POC Anion Gap (16-25) mmol/L POC BUN (7-18) mg/dl BUN (6-23) mg/dl Creatinine (0.6-1.4) mg/dl POC Creatinine (0.6-1.3) mg/dl Est Cr Clr Drug Dosing ml/min Est GFR ( Amer) ml/min Est GFR (Non-Af Amer) ml/min BUN/Creatinine Ratio (10-20) Glucose (70-99(Fasting)) mg/dl POC Glucose 157 H (70-99) mg/dl POC Glucose (other) (70-99) mg/dl Lactate (0.4-2.0) mmol/L Calcium (8.6-10.3) mg/dl POC Ioniz Calcium [place]her (1.12-1.32) mmol/l Magnesium (1.7-2.4) mg/dl Total Bilirubin (0.2-1.0) mg/dl Direct Bilirubin (0-0.2) mg/dl AST (13-39) U/L ALT (7-52) U/L Alkaline Phosphatase (34-104) U/L Troponin I High Sens (0-20) pg/ml Total Protein (6.0-8.3) gm/dl Albumin (3.4-5.0) gm/dl Procalcitonin (0-0.5) ng/ml Urine Color Urine Appearance (Clear) Urine pH (4.5-7.5) Ur Specific [place] (1.000-1.030) Urine Protein (Negative) Urine Glucose (UA) (Negative) Urine Ketones (Negative) Urine Blood (Negative) Urine Nitrite (Negative) Urine Bilirubin (Negative) Urine Urobilinogen (Negative) Ur Leukocyte Esterase (Negative) Urine WBC (Auto) (0-5) /hpf Urine RBC (Auto) (0-2) /hpf U Hyaline Cast (Auto) (0-2) /lpf U Epithel Cells (Auto) (0-2) /hpf Urine Bacteria (Auto) (None Seen) Hyaline Casts (None Presnt) /lpf Granular Casts (None Prsent) /lpf Nasal Screen MRSA (PCR) (Negative) Diagnostic Findings Abdomen/Pelvis CT 04/21/24 02:44 CR Exam(s): CT ABDOMEN + PELVIS With Contrast IV Amt: 91 ML OPTIRAY 320 EXAM: CT Chest, Abdomen and Pelvis With Intravenous Contrast CLINICAL HISTORY: Reason for exam: abdominal pain. TECHNIQUE: Axial computed tomography images of the chest, abdomen and pelvis with intravenous contrast. Automated exposure control was utilized for the study. A dose lowering technique was utilized adhering to the principles of ALARA. CONTRAST: Patient received 91 ML OPTIRAY 320 of IV contrast COMPARISON: No relevant prior studies available. FINDINGS: CHEST: Lungs: Partial collapse of the right lower lobe. No mass. No consolidation. Pleural space: Large right pleural effusion with dependent complex components. Please note this appears to have mediastinal extension. Small foci of air noted superiorly. Findings are favored to relate to large hemopneumothorax. Left pleural. Heart: Coronary artery calcifications. No cardiomegaly. No significant pericardial effusion. Mediastinum: Mediastinal shift to the left. ABDOMEN: Liver: Low attenuation foci in the liver some of which are due to cysts. Others are too small to characterize. Low attenuation foci in the liver which may be due to cysts but are too small to characterize. Gallbladder and bile ducts: Cholelithiasis. No gross findings to suggest cholecystitis. No ductal dilation. Pancreas: Unremarkable. No ductal dilation. No mass. Spleen: Unremarkable. No splenomegaly. Adrenals: Unremarkable. No mass. Kidneys and ureters: Unremarkable. No hydronephrosis. No solid mass. Stomach and bowel: No evidence of bowel obstruction. Partially visualized right fat and bowel containing inguinal hernia. No mucosal thickening. PELVIS: Appendix: No findings to suggest acute appendicitis. Bladder: Unremarkable. No mass. Reproductive: Prostatic calcifications with prostatomegaly. CHEST, ABDOMEN and PELVIS: Intraperitoneal space: Unremarkable. No significant fluid collection. No free air. Bones/joints: Acute fractures of the posterior right 8th-12th ribs at the costotransverse junctions. Acute fracture of the right posterior 9th and 10th ribs with displacement. Degenerative changes in the spine. No dislocation. Soft tissues: Umbilical hernia containing fat. Vasculature: Atherosclerotic disease. Lymph nodes: Unremarkable. No enlarged lymph nodes. IMPRESSION: 1. Large right pleural effusion with dependent complex components. Please note this appears to have mediastinal extension. Small foci of air noted superiorly. Findings are favored to relate to large hemopneumothorax. 2. Acute fractures of the posterior right 8th-12th ribs at the costotransverse junctions. 3. Acute fracture of the right posterior 9th and 10th ribs with displacement. 4. Partial collapse of the right lower lobe. 5. Mediastinal shift to the left. 6. No evidence of solid organ injury. Communications: Call Doctor Above results Electronically signed by: Cole Baez MD 04/21/24 04:[address] 04/21/24 02:44 Exam(s): CT C SPINE EXAM: CT Cervical Spine Without Intravenous Contrast CLINICAL HISTORY: Reason for exam: fall. TECHNIQUE: Axial computed tomography images of the cervical spine without intravenous contrast. Automated exposure control was utilized for the study. A dose lowering technique was utilized adhering to the principles of ALARA. COMPARISON: No relevant prior studies available. FINDINGS: Vertebrae: No evidence of acutely displaced fracture or dislocation within the cervical spine. Consider MRI if there is further concern. Degenerative changes in the cervical spine noted including loss of disc space height, osteophyte formation, uncovertebral hypertrophy, and facet arthropathy. Soft tissues: Unremarkable. Mastoid air cells: Right mastoid effusion. Left canal wall up mastoidectomy changes. Pleural space: Partially visualized large right pleural effusion. IMPRESSION: 1. No evidence of acutely displaced fracture or dislocation within the cervical spine. Consider MRI if there is further concern. 2. Partially visualized large right pleural effusion. 3. Degenerative changes. Electronically signed by: Cole Baez MD 04/21/24 04:30 AM Chest X-Ray 04/21/24 02:44 XR chest 1V portable CLINICAL HISTORY: Sepsis TECHNIQUE: Single frontal radiograph of the chest was obtained. Comparison: Comparison is made to chest radiograph 02/25/2024 FINDINGS: No lines and tubes are seen. Calcified aortic knob is seen. Right-sided pleural effusion is seen with underlying airspace opacities. Prominent line projecting over the left chest wall represents a skin fold. IMPRESSION: Interval development of a moderate right pleural effusion with underlying atele ctasis. Superimposed aspiration/pneumonia cannot be excluded. ACT 112: Negative or not required by law. Electronically signed by: Miguel Goldstein M.D. 04/21/2024 7:[address] 04/21/24 02:44 CR Exam(s): CT HEAD Without Contrast EXAM: CT Head Without Intravenous Contrast CLINICAL HISTORY: Reason for exam: fall. TECHNIQUE: Axial computed tomography images of the head/brain without intravenous contrast. Automated exposure control was utilized for the study. A dose lowering technique was utilized adhering to the principles of ALARA. COMPARISON: CT Head dated feb 25 2024 FINDINGS: Brain: 4 mm left and 3 mm right cerebral convexity subdural hematomas. The right subdural hematoma appears to be isodense compared to the adjacent [place] matter in the left subdural hematoma appears to be hypodense compared to the adjacent [place] matter. These are unchanged from prior study February 25, 2024. Areas of decreased attenuation in the deep cerebral white matter are consistent with small vessel ischemic/degenerative changes. The cerebral and cerebellar sulci are prominent consistent with brain atrophy. Ventricles: Unremarkable. No ventriculomegaly. Bones/joints: Unremarkable. No acute fracture. Soft tissues: Unremarkable. Vasculature: Atherosclerotic disease. Sinuses: Unremarkable as visualized. Mastoid air cells: Right mastoid effusion. Left canal wall up mastoidectomy changes. Orbits: Bilateral lens replacements. IMPRESSION: 1. 4 mm left and 3 mm right cerebral convexity subdural hematomas. The right subdural hematoma appears to be isodense compared to the adjacent [place] matter in the left subdural hematoma appears to be hypodense compared to the adjacent [place] matter. These are unchanged from prior study February 25, 2024. 2. No other sites of intracranial hemorrhage identified. 3. Small vessel ischemic/degenerative changes. 4. Cerebral and cerebellar atrophy. Communications: Verify Receipt Electronically signed by: Cole Baez MD 04/21/24 04:[address] 04/21/24 03:48 Exam(s): CT CHEST With Contrast IV Amt: 91 ML OPTIRAY 320 EXAM: CT Chest, Abdomen and Pelvis With Intravenous Contrast CLINICAL HISTORY: Reason for exam: abdominal pain. TECHNIQUE: Axial computed tomography images of the chest, abdomen and pelvis with intravenous contrast. Automated exposure control was utilized for the study. A dose lowering technique was utilized adhering to the principles of ALARA. CONTRAST: Patient received 91 ML OPTIRAY 320 of IV contrast COMPARISON: No relevant prior studies available. FINDINGS: CHEST: Lungs: Partial collapse of the right lower lobe. No mass. No consolidation. Pleural space: Large right pleural effusion with dependent complex components. Please note this appears to have mediastinal extension. Small foci of air noted superiorly. Findings are favored to relate to large hemopneumothorax. Left pleural. Heart: Coronary artery calcifications. No cardiomegaly. No significant pericardial effusion. Mediastinum: Mediastinal shift to the left. ABDOMEN: Liver: Low attenuation foci in the liver some of which are due to cysts. Others are too small to characterize. Low attenuation foci in the liver which may be due to cysts but are too small to characterize. Gallbladder and bile ducts: Cholelithiasis. No gross findings to suggest cholecystitis. No ductal dilation. Pancreas: Unremarkable. No ductal dilation. No mass. Spleen: Unremarkable. No splenomegaly. Adrenals: Unremarkable. No mass. Kidneys and ureters: Unremarkable. No hydronephrosis. No solid mass. Stomach and bowel: No evidence of bowel obstruction. Partially visualized right fat and bowel containing inguinal hernia. No mucosal thickening. PELVIS: Appendix: No findings to suggest acute appendicitis. Bladder: Unremarkable. No mass. Reproductive: Prostatic calcifications with prostatomegaly. CHEST, ABDOMEN and PELVIS: Intraperitoneal space: Unremarkable. No significant fluid collection. No free air. Bones/joints: Acute fractures of the posterior right 8th-12th ribs at the costotransverse junctions. Acute fracture of the right posterior 9th and 10th ribs with displacement. Degenerative changes in the spine. No dislocation. Soft tissues: Umbilical hernia containing fat. Vasculature: Atherosclerotic disease. Lymph nodes: Unremarkable. No enlarged lymph nodes. IMPRESSION: 1. Large right pleural effusion with dependent complex components. Please note this appears to have mediastinal extension. Small foci of air noted superiorly. Findings are favored to relate to large hemopneumothorax. 2. Acute fractures of the posterior right 8th-12th ribs at the costotransverse junctions. 3. Acute fracture of the right posterior 9th and 10th ribs with displacement. 4. Partial collapse of the right lower lobe. 5. Mediastinal shift to the left. 6. No evidence of solid organ injury. Electronically signed by: Cole Baez MD 04/21/24 04:38 AM PG Care Time/CCT Total # of Minutes Spent Total Time Spent: 45 Total Time Spent with Patient: Total time spent is greater than 50% in coordination of care (as documented) at patient's floor/unit and/or counseling patient: [place] [address] IN/OBS CONSULT LVL 3,45M Patient Type New History Comprehensive Medical Decision Making High Complexity Diagnoses Rib pain R07.81 Agitation due to dementia F03.911 Agitation R45.1 Frequent falls R29.6 Weakness generalized R53.1 Dementia with behavioral disturbance F03.918 Palliative care by specialist Z51.5 Need for comfort care
[2024-04-22] MEDS ORDERED: HYDROmorphone INJ 1 MG/ML SYRINGE IV PRN (09:57)
[2024-04-22] MEDS ORDERED: HYDROmorphone INJ 0.5 MG/0.5 ML SYR IV PRN (09:57)
[2024-04-22] MEDS ORDERED: LORazepam 1 MG in SYRINGE 0.5 ML IV PRN (09:57)
[2024-04-22] MEDS ORDERED: haloperidoL 1 MG TAB PO PRN (09:59)
[2024-04-22] MEDS ORDERED: OLANZapine 5 MG TABLET PO PRN (10:48)
[2024-04-22] MEDS: OLANZapine 10 MG/2.1 ML SDV IM SCH (10:56)
--- NOTE | 2024-04-22 12:57 | Communication Note ---
Date of Service: April 22, 2024 PALLIATIVE MED FAMILY MEETING I spoke with Kandy family (dtr/Kaila and /Ana) for a telephonic ACP x 30min: We discussed and reviewed symptom mgt needs; I advised he is ok for dc once symptoms are controlled and that is what SNF asked of us as well. Kaila asked about her concerns that with his rib fx and collapsed lung, can SNF manage and I assured her that is why adding hospice would be beneficial bc hospice team looks after those needs. We spoke at length about changes to expect as someone nears their dying time. Ana asked about anticipated survival and I said for right now I would say weeks to month or 2, but hard to predict based on one day of admission. I also advised if he stops taking PO completely then this time frame will acutely shorten. We agreed on a full comfort diet/allow PO as tolerated and allow permissive aspiration. I would keep him on Zyprexa ODT 5-7.5mg BID along with a TDF 25mcg patch for comfort/and I would pre medicate with Roxanol 15mg PO 15min prior to personal care, repositioning etc for comfort. I have shared this update with primary team and nursing. TS 35min Thank you for allowing us to participate in the ongoing care of this patient. Please page with any additional concerns. Linette Crawford DNP Director, Palliative Medicine
[2024-04-22] MEDS ORDERED: MoRPHine SULFATE 10 MG/0.5 ML UDP PO PRN (13:01)
--- NOTE | 2024-04-22 13:26 | Hospitalist Progress Note ---
Date of Service April 22, 2024 Assessment & Plan (1) Multiple rib fractures: (2) Frequent falls: (3) Loose stools: (4) History of subdural hematoma: (5) Dementia with behavioral disturbance: Plan Patient is a 83-year-old male who [facility] to an unwitnessed [facility]. Patient has been having multiple falls and recently had a rib fracture seen on x-ray at the facility, as per . Discussion regarding goals of care -Patient's contacted to discuss ultimate goal of care -Patient's and daughter state that patient had noted on multiple occasions that should he become incapacitated he did not want aggressive measures to be taken. Patient DNR/DNI and palliative was consulted. -After discussing goals of care, patient going to hospice and comfort measures only while admitted -Morphine, fentanyl patches, Dilaudid ordered by Dr. Crawford for pain control -Ativan ordered for management of anxiety and agitation -Patient today is closer to his baseline with regards to cognition, but not quite there yet -Hopeful for discharge back to [facility] for hospice tomorrow if no acute worsening Recurrent Falls // Multiple Rib Fractures // Hemo-pneumothorax -Patient with baseline severe dementia. Frequent falls. -Chest CT showed a large right pleural effusion with possible large hemopneumothorax. -Acute rib fractures in the posterior right 812 ribs, right posterior 912 ribs with displacement -Partial collapse of the right lower lobe with mediastinal shift to the left -Plan to return to center care once back to baseline and pain is controlled Loose Stools -Elevated lactate of 4.5 that corrected to 1.1 after IV fluids -MRSA swab negative -Zosyn and vancomycin dc -C. difficile pending collection. Hx of Subdural hematoma -Head CT showed a 4 mm left and 3 mm right cerebral subdural hematomas that are unchanged from prior study done on February 25, 2024 Dementia -Patient with a history of severe dementia and unable to answer majority of questions. -History of nighttime agitation. Zyprexa ordered as needed Fluids: None Nutrition: Pureed; aspiration precautions due to poor awareness Code status: DNR/DNI DVT ppx: None Consults: Palliative care Dispo: Comfort Measures Only; to discharge back to [facility] once returned to baseline and pain is well controlled Admission and Anticipated Discharge Date Admission Date: April 21, 2024 Supervising Physician Co-Signing Physician Notes Attending Physician Supervision Note: I independently interviewed and examined the patient and verified the benavides history and physical, reviewed labs and image studies and agree with findings and care plan noted above. Subjective Patient evaluated at bedside and found to be awake but dazed and looking around the room. When patient was was called, he did not look towards person who was saying his name and instead kept looking around the room. Patient was reevaluated in the afternoon when family was present, at this time patient was more awake and active. He was vocalizing pain whenever pressure was put on his right side. Family states that he is closer to his baseline with regards to behavior and cognitive status prior to recent fall that brought him to the hospital, but is not quite back to his baseline. No other concerns. Review of Systems Review of Systems: As per HPI Physical Exam Physical Exam: GENERAL: Awake and alert, disoriented, in pain, afebrile, no acute distress CARDIO: Regular rate and rhythm, no rubs murmurs or gallops RESPIRATORY: Normal respiratory effort, breathing at room air, no respiratory distress GI: Soft, nontender, nondistended : Cortez catheter with dark yellow urine with no obvious sediment or blood in In collecting bag MSK: No swelling or calf tenderness in bilateral lower extremities, tenderness on mild palpation of right flank SKIN: No rashes Resident Activity Tracking Resident Involvement: Resident Care Provided Care Provided: Adult Hospital Medicine (1) Multiple rib fractures Encounter type: initial encounter Fracture type: closed Laterality: right Qualified Code(s): S22.41XA - Multiple fractures of ribs, right side, initial encounter for closed fracture
[2024-04-22] MEDS: fentaNYL 25 MCG/HR TDSY TD SCH (13:32)
[2024-04-22] MEDS: CHECK fentaNYL PATCH PLACEMENT SCH (15:57)
--- NOTE | 2024-04-23 09:46 | Discharge Summary ---
Date of Service April 23, 2024 Admission HPI Per Admitting Provider Patient is a 83-year-old male who presents to the hospital from [facility] [place] [facility] due to an unwitnessed fall. Patient was found laying by his bed. Patient has baseline dementia but was more confused after the fall. He did return slightly to his baseline prior to leaving. He is unable to answer any questions, which apparently is his baseline. He has been having frequent falls, not on any blood thinners. Patient reportedly had a fall in the last 3 days which resulted in rib fractures that was seen on x-ray. X-ray currently not in our system. Patient was also covered in feces at time of arrival. Patient reportedly has been having some loose stools. Patient is reportedly a DNR. Patient does have a history of a subdural hematoma. In the ED: CMP overall benign, CBC with a slight leukocytosis and a hemoglobin of 10.3. Lactate of 4.5. UA with hyaline and granular casts as well as +[address] showed a 4 mm left and 3 mm right cerebral subdural hematomas that are unchanged from prior study done on February 25, 2024. No other acute sites of intracranial hemorrhage. Chest CT showed a large right pleural effusion, with possibility of a large hemopneumothorax. Acute fractures of the posterior right ribs, acute fractures of the right posterior 9 through 12 ribs with displacement. Partial collapse of the right lower lobe with a mediastinal shift to the left Admission Exam Per Admitting Provider GENERAL: ill in appearance, obtunded EYE EXAM: Normal conjunctiva. PERRL OROPHARYNX: Dry mucus membranes, grossly normal dentition. NECK: Trachea midline, no stridor. LUNGS: Decreased breath sounds on the right, clear to auscultation on the left, HEART: Tachycardic and regular, no MRG. ABDOMEN: Abdomen soft, diffuse abdominal pain, no masses, no rebound or guarding. UPPER EXTREMITIES: Upper extremities are grossly normal. LOWER EXTREMITIES: Likely aged bruising to the left knee no obvious deformity noted leg length discrepancy. No TTP to the hip knee or ankles. NEURO EXAM: Obtunded Principal Diagnosis Multiple rib fractures, right-sided hemo-pneumothorax, dementia Discharge Exam GENERAL: Asleep, disoriented, calm, afebrile, no acute distress CARDIO: Regular rate and rhythm, no rubs murmurs or gallops RESPIRATORY: Normal respiratory effort, breathing at room air, no respiratory distress GI: Soft, nontender, nondistended SKIN: No rashes Discharge Data Allergies Allergy/AdvReac Type Severity Reaction Status Date / Time No Known Allergies Allergy Verified 04/21/24 02:39 Consultations 04/21/24 04:58 ED Decision to Admit Stat 04/21/24 05:49 Consult Palliative Care Routine Ordered Studies 04/21/24 02:44 CT abd pelvis IV con only Stat CT cervical spine wo con Stat CT head/brain wo con Stat 04/21/24 03:48 CT chest diagnostic w con Stat Hospital Course (1) Multiple rib fractures: (2) Frequent falls: (3) Loose stools: (4) History of subdural hematoma: (5) Dementia with behavioral disturbance: Plan Patient is a 83-year-old male who [facility] to an unwitnessed [facility]. Patient has been having multiple falls and recently had a rib fracture seen on x-ray at the facility, as per . Discussion regarding goals of care -Patient's contacted to discuss ultimate goal of care -Patient's and daughter state that patient had noted on multiple occasions that should he become incapacitated he did not want aggressive measures to be taken. Patient DNR/DNI. -After discussing goals of care, patient going to hospice and comfort measures only -Pain control achieved with Dilaudid, Fentanyl patches, and Roxanol -Ativan ordered for management of anxiety and agitation, as well as Zyprexa bid -Pain is well controlled - Patient to be [facility] to [facility] for [facility] with above mentioned pain and anxiety/agitation meds Recurrent Falls // Multiple Rib Fractures // Hemo-pneumothorax -Patient with baseline severe dementia. Frequent falls. -Chest CT showed a large right pleural effusion with possible large hemopneumothorax. -Acute rib fractures in the posterior right 812 ribs, right posterior 912 ribs with displacement -Partial collapse of the right lower lobe with mediastinal shift to the left -No intervention per family wishes as detailed above -Patient to be [facility] to [facility] Loose Stools -- Resolved -Elevated lactate of 4.5 that corrected to 1.1 after IV fluids -MRSA swab negative -stools improved during admission -encourage maintained hydration Hx of Subdural hematoma -- Chronic -Head CT showed a 4 mm left and 3 mm right cerebral subdural hematomas that are unchanged from prior study done on February 25, 2024 Dementia -- Chronic -Patient with a history of severe dementia and unable to answer majority of questions. -History of nighttime agitation. Zyprexa ordered bid Patient to be discharged to [facility] today with above mentioned pain medications for hospice. Total Time Total Time Spent Total Time Spent (In Minutes): As per attending attestation. Discharge Plan Discharge Items Patient Disposition: Hospice - Medical Facility Reason For Visit: PAIN CONTROL, RIB FRX'S Discharge Diagnosis: Multiple rib fractures, hemo-pneumothorax Activity: Per Instructions section Non-emergency contact: Primary Care Provider Call non-emergency contact if: your symptoms worsen and your temperature is above 101 Follow-up/Referrals: [facility] [Primary Care Provider] - Diet: Regular and Other - See Diet Comment Diet Texture: Pureed (blended smooth) Diet Comment: Minced and moist Addtl Attending Provider Instructions: Patient admitted to the hospital after experiencing a fall. In the ED, imaging showed multiple right-sided rib fractures and a large right-sided hemo- pneumothorax. Patient with significant pain related to his rub fractures and on arrival required oxygen supplementation with nasal cannula. Eventually he was weaned of of this. After discussions regarding prognosis, patient changed to comfort measures only and family agreed to move patient to hospice. After adequate pain control was achieved, patient to be discharged back to [facility] today for hospice. The following pain medications have been sent: Dilaudid 0.8mg and Dialudid 1mg IV prn options added for pain and air hunger relief Ativan IV increased to 1mg prn Fentanyl patches 25 mcg Roxanol 15mg PO 15min prior to personal care, repositioning etc for comfort Zyprexa 5 to 7.5 mg BID also sent for agitation. CONTACT YOUR PRIMARY CARE PROVIDER if you experience any of the following: Worsening of symptoms Fever, chills, or fatigue Difficulty following your treatment plan, or difficulty taking medications CALL 911 OR GO TO THE EMERGENCY DEPARTMENT if you experience any of the following: Sudden, severe abdominal pain or nausea/vomiting Severe chest pain, or chest pain that radiates (moves) to your jaw or arm Sudden, severe shortness of breath or difficulty breathing Thank you for allowing us to participate in your care. Pending Studies at Discharge: No Stand-Alone Forms: My [facility] Skilled Items Patient informed of condition?: Yes DNR: Yes Discharge Level of Care: Skilled Communicable Disease: No Discharge Prognosis: Stable Lines: None Urinary Catheter: No Medications and DC Order Prescriptions: New fentanyl 25 mcg/hr Patch 72 Hour 1 patch transdermal Q3D Qty: 5 0RF morphine concentrate 100 mg/5 mL (20 mg/mL) Solution 15 mg PO Q30M PRN (Reason: pain) Qty: 120 0RF olanzapine 5 mg Tablet 5 mg PO BID PRN (Reason: agitation) Qty: 30 0RF No Action acetaminophen 325 mg Tablet 650 mg PO Q6H MDD 3000mg/24hr PRN (Reason: Fever Or Pain) polyethylene glycol 3350 [Miralax] 17 gram Powder In Packet 17 g PO QAM magnesium hydroxide [Milk of Magnesia] 400 mg/5 mL Suspension See Rx Instructions .ROUTE .COMPLEX PRN (Reason: Constipation) Rx Instructions: Milk of Mag 7.75%: Give 30ml by mouth as needed for constipation if no BM for 3 days; administer on 7-3 shift bisacodyl [Dulcolax (bisacodyl)] 10 mg Suppository 10 mg SC DAILY PRN (Reason: Constipation) Rx Instructions: Give on day 3; 3-11 shift if no BM after MOM Fleet Enema 19-7 gram/118 mL Enema 118 ml SC DAILY PRN (Reason: Constipation) Rx Instructions: Give on day 4; 7-3 shift if no BM after Dulcolax omeprazole 20 mg capsule,delayed release(DR/EC) 20 mg PO QAM divalproex [Depakote Sprinkles] 125 mg Capsule, Delayed Rel Sprinkle 250 mg PO BID PreserVision AREDS-2 250-90-40-1 mg Tablet,Chewable 1 tab PO BID acetaminophen 325 mg tablet 650 mg PO BID MDD 3000MG/24HR lidocaine 4 % Adhesive Patch,Medicated 2 patch TOPICAL DAILY Rx Instructions: APPLY TO RIGHT RIBS, ON QAM, OFF QPM. olanzapine 5 mg Tablet 5 mg PO HS tramadol 50 mg tablet 50 mg PO Q6H PRN (Reason: Severe Pain (Scale Score 7-10)) Discharge Orders: Discharge Order (Routine); Ordered 04/23/24 Ordered By: Prabhjot Villalobos Admission Data Admit Date/Time: 04/21/24 05:28 Attending Provider: Prabhjot Villalobos Admit Provider: Kingsley Porter Primary Care Provider: [facility] Other Providers: Thien Oswald; Griselda Crawford; [facility] Supervising Physician Co-Signing Physician Notes Attending attestation Pt seen and examined in concert with Dr. Lau. In agreement with the documented findings as noted in the resident documentation with any exceptions or additions as noted here. Pain appears well controlled on present regimen and without dyspnea apparent. On examination, S1/S2 nl RRR no MCG. CTAB. Abd NT/ND BS+ve Transition to hospice in the setting of multiple rib fx w/ hemopneumothorax - pain management per palliative care recommendations including: fentanyl patch 25mcg, roxinol. Else see resident documentation as noted. Total attending physician time spent with this patient's care on the day of discharge: 40 minutes. Resident Activity Tracking Resident Involvement: Resident Care Provided Care Provided: Adult Hospital Medicine
== END 2024-04-23 17:33 | disposition hospice, inpatient (51) | DRG 184 ==
LOC: ED 02:33 → SUATTDRO 05:28 → EDINP 05:28 → 3E 05:38